=== PATIENT | female | born 1940 | race Caucasian/White ===

== ENCOUNTER → 2019-10-24 10:02 | Outpatient (CLI) | payer MEDICARE, SELFPAY ==
--- NOTE | 2019-10-24 10:07 | RAD_ITS ---
STUDY: X-RAY - LEFT KNEE REASON FOR EXAM: Female, 79 years old. FALL ONE YEAR AGO, RECENTLY PAIN GOT WORSE, NO NEW INJURY TECHNIQUE: 4 view(s) of the knee. COMPARISON: None. FINDINGS: Normal visualized distal femur. Normal visualized proximal tibia and fibula. Normal proximal tibiofibular articulation. There is moderate to severe degenerative arthrosis of the medial femorotibial compartment with moderate joint space narrowing. Normal lateral femorotibial compartment. There is moderate degenerative arthrosis of the patellofemoral articulation. 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
--- NOTE | 2019-10-24 10:08 | RAD_ITS ---
STUDY: X-RAY - PELVIS AND LEFT HIP REASON FOR EXAM: Female, 79 years old. FALL ONE YEAR AGO, PAIN GOT WORSE RECENTLY, NO NEW INJURY TECHNIQUE: 3 views of the pelvis and hip. COMPARISON: None. FINDINGS: There is a non-specific bowel gas pattern. Normal visualized soft tissue structures. Normal bilateral iliac wings, sacroiliac joints and visualized sacrum. Normal bilateral superior and inferior pubic rami. Normal pubic symphysis. Normal bilateral ischial tuberosities. Normal visualized femoral head. Normal acetabulum. There is mild articular joint space narrowing of the hip. Similar mild arthritic changes noted in the right hip. RAD/HIP, UNI W/ Pelvis 2-3 Views IMPRESSION: Age consistent degenerative changes, no acute findings Electronically Signed: Myron Bone MD at 10:57 EDT , Service support ,
== END ==
PROVIDERS: PCP Family Medicine; Referring Provider Family Medicine; Visit Provider Family Medicine
DX: M25.562 Pain in left knee (principal); M25.552 Pain in left hip
CPT/HCPCS: 73502; 73564

== ENCOUNTER → 2019-11-02 10:41 | Outpatient (CLI) | payer MEDICARE, SELFPAY ==
--- NOTE | 2019-11-02 10:49 | ADUL_ITS ---
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 Common Femoral Artery, mid = 113 cm./sec. Supf. Femoral Artery, prox = 125 cm./sec. Supf. Femoral Artery, mid = 136 cm./sec. Supf. Femoral Artery, dist = 128 cm./sec. Profunda Femoral Artery = 115 cm./sec. Popliteal Artery, proximal, = 63 cm./sec. Popliteal Artery, mid = 109 cm./sec. Popliteal Artery, distal = 97 cm./sec. Ant.Tibial Artery, prox = 93 cm./sec. Ant Tibial Artery, mid = 92 cm./sec. Ant. Tibial Artery, distal = 72 cm./sec. Post. Tibial Artery, prox = 96 cm./sec. Post Tibial Artery, mid = 87 cm./sec. Post Tibial Artery, dist. = 99 cm./sec. Peroneal Artery, prox = 71 cm./sec. Peroneal Artery, mid = 68 cm./sec. Peroneal Artery,dist. = 65 cm./sec. Lt DPA: 96 cm/s. Procedure Exam performed in department. Interpretation Summary Normal, pulsatile arterial flow is noted at all levels in the left lower extremity. There is no evidence of aneurysmal dilatation in the left popliteal artery. Ordering Physician: Neo Coon Referring Physician: Neo Coon Performed By: Yeimy Maya, MOISES, RVT
== END ==
PROVIDERS: PCP Family Medicine; Referring Provider Family Medicine; Visit Provider Family Medicine
DX: I74.2 Embolism and thrombosis of arteries of the upper extremities (principal); M25.562 Pain in left knee
CPT/HCPCS: 93926

== ENCOUNTER → 2020-04-17 09:41 | Outpatient (CLI) | payer MEDICARE, SELFPAY ==
[2020-04-17 12:24] LABS: Absolute Lymphocyte Count 1.38 X10^3/uL (0.83-4.51); Absolute Neutrophil Count 3.7 X10^3/uL (2.0-7.7); Basophil# 0.06 X10^3/uL; Eosinophil# 0.11 X10^3/uL; Eosinophils% 1.9 % (0-5); Hematocrit 44.9 % (37-47); Hemoglobin 14.3 g/dL (12.0-15.0); Lymphocyte # 1.38 X10^3/ul (4.0); Lymphocyte % 23.9 % (19-41); Mean Corp Hgb Conc 31.8 g/dL (32-36); Mean Corpuscular Hgb 27.8 pg (27.0-32.0); Mean Corpuscular Volume 87.4 fL (81-99); Mean Platelet Vol. 11.5 fl (6.2-12.0); Monocyte% 8.7 % (0-10); NRBC Flagged by Analyzer 0 % (0-5); Neutrophil # 3.71 X10^3/uL (2.7-7.7); Neutrophil % 64.2 % (47-70); Platelet Count 261 K/mm3 (150-450); RBC Distribution Width CV 13.8 % (11.6-14.6); RBC Distribution Width SD 44.7 fl (35.1-43.9); Red Blood Count 5.14 M/mm3 (4.2-5.4); White Blood Count 5.8 K/mm3 (4.4-11.0)
[2020-04-17 12:58] LABS: ALB/GLOB Ratio 1.1 RATIO (0.9-2.4); AST(SGOT) 14 U/L (15-37); Alanine Aminotransfer ALT/SGPT 19 U/L (13-56); Albumin, Serum 4.1 g/dL (3.2-5.0); Alkaline Phosphatase 71 U/L (45-117); Anion Gap 7 (5-15); BUN 14 mg/dL (7-18); Calcium,Total 9.6 mg/dL (8.5-10.1); Chloride 105 mmol/L (98-107); Cholesterol 148 mg/dL (200); EST Glomerular Filtration Rate 57 mL/min (>60); Est Glom Filt Rate - Afr Amer 69 mL/min (>60); Globulin 3.6 g/dL (2.2-4.2); Glucose 93 mg/dL (74-106); High Density Lipoprotein 59 mg/dL; Potassium 3.7 mmol/L (3.5-5.1); Protein, Total 7.7 g/dL (6.4-8.2); Sodium Level 142 mmol/L (136-145); Thyroid Stim Hormone (TSH) 2.13 uIU/mL (0.358-3.74); Triglycerides 96 mg/dL; Very Low Density Lipoprotein 19 mg/dL (5-40)
== END ==
PROVIDERS: PCP Family Medicine; Visit Provider Family Medicine
DX: I10 Essential (primary) hypertension (principal); E78.5 Hyperlipidemia, unspecified
CPT/HCPCS: 36415; 80053; 80061; 84443; 85025

== ENCOUNTER → 2020-05-11 09:45 | Outpatient (CLI) | payer MEDICARE, SELFPAY ==
--- NOTE | 2020-05-11 09:50 | CDU_ITS ---
Reason For Study: Bilateral bruits Rt. Velocities/BP Lt. Velocities/BP Prox CCA 61.7/9.5 cm/sec. Prox CCA 75/14.6 cm/sec. Mid CCA 72.1/12.1 cm/sec. Mid CCA 70.6/14.6 cm/sec. Dist CCA 49.9/13.4 cm/sec. Dist CCA 60.8/9.1 cm/sec. Prox ICA 49.5/12.6 cm/sec. Prox ICA 109.7/31.1 cm/sec. Mid ICA 79.8/20.6 cm/sec. Mid ICA 120/24.4 cm/sec. Dist ICA 107.2/26.2 cm/sec. Dist ICA 117/22.6 cm/sec. Rt. ICA/CCA = 1.7. Lt. ICA/CCA = 1.7. Prox ECA 192.5/16.3 cm/sec. Prox ECA 110.9/9 cm/sec. Rt. Vert. 22.3 cm/sec. Lt. Vert. 66.7/18.8 cm/sec. Right Extracranial There is homogeneous, smooth atherosclerotic plaque noted in the right common carotid artery. There is heterogeneous, irregular atherosclerotic plaque noted in the right internal carotid artery. There is homogeneous, irregular atherosclerotic plaque noted in the right external carotid artery. Antegrade flow is noted in the right vertebral artery. Left Extracranial There is homogeneous, smooth atherosclerotic plaque noted in the left common carotid artery. There is heterogeneous, irregular atherosclerotic plaque noted in the left internal carotid artery. The left internal carotid artery is very tortuous. There is homogeneous, smooth atherosclerotic plaque noted in the left external carotid artery. Antegrade flow is noted in the left vertebral artery. Procedure Carotid Duplex [id number]. This is a Carotid Duplex examination using B-mode, color flow and specral Doppler. Exam performed in department. Interpretation Summary Mild (<50%) stenosis right extracranial internal carotid. Mild (<50%) stenosis left extracranial internal carotid. A high-resistance waveform with diminished diastolic flow is noted in the right vertebral artery which is suggestive of stenosis or occlusion more distally. Clinical correlation is advised. Flow within the left verterbral artery is antegrade. Ordering Physician: Neo Coon Referring Physician: Neo Coon Performed By: Maye Garner RVT
== END ==
PROVIDERS: PCP Family Medicine; Referring Provider Family Medicine; Visit Provider Family Medicine
DX: I65.23 Occlusion and stenosis of bilateral carotid arteries (principal); I10 Essential (primary) hypertension; E78.5 Hyperlipidemia, unspecified; Z87.891 Personal history of nicotine dependence
CPT/HCPCS: 93880

== ENCOUNTER → 2020-05-22 14:40 | Outpatient (CLI) | payer MEDICARE, SELFPAY ==
--- NOTE | 2020-05-22 14:48 | CT_ITS ---
STUDY: CTA OF THE BRAIN REASON FOR EXAM: Female, 80 years old. VERTEBRAL ARTERY STENOSIS RADIATION DOSAGE (If Supplied By Facility): CTDIvol = ( 26.54 ) mGy, DLP = ( 1390.46 ) mGycm TECHNIQUE: CT angiography was performed with a multi-detector CT scanner. Data acquisition was obtained from the skull base through the vertex following intravenous administration of 100 ML ISOVUE 370. MIP images were reconstructed from the axial data set. Post-processing of the angiographic images was performed, with multiplanar reformation and 3D reconstruction. Individualized dose optimization techniques were used for this CT. COMPARISON: None. FINDINGS: Normal bilateral petrous carotid arteries. There is calcified plaque formation of the right cavernous carotid artery, without a cross-sectional luminal stenosis. There is calcified plaque formation of the left cavernous carotid artery, without a cross-sectional luminal stenosis. Normal right A1 segments of the anterior cerebral artery. Normal left A1 segments of the anterior cerebral artery. Normal intact anterior communicating artery (ACOM). Normal bilateral A2 segments of the anterior cerebral arteries. Normal right M1 and M2 segments of the middle cerebral arteries, with a normal M1 bifurcation. Normal left M1 and M2 segments of the middle cerebral arteries, with a normal M1 bifurcation. Normal right posterior communicating artery (PCOM). Normal left posterior communicating artery (PCOM). There is a small atretic right vertebral artery with a dominant left vertebral artery. Normal basilar artery with a normal basilar bifurcation. The visualized bilateral superior cerebellar (SCA) arteries are normal. Normal bilateral P1, P2 and visualized P3 segments of the posterior cerebral arteries. There is no demonstrated aneurysm of the [place]. Mild cerebral atrophy. Evidence of old lacunar infarct in the basal ganglia bilaterally. Partial opacification of the left maxillary sinus. CT/CTA Head W/WO Contrast IMPRESSION: Small atretic right vertebral artery with a dominant left vertebral artery. Electronically Signed: Joesph Nicholas MD at 15:26 EST , Service support ,
== END ==
PROVIDERS: PCP Family Medicine; Referring Provider Family Medicine; Visit Provider Family Medicine
DX: I65.09 Occlusion and stenosis of unspecified vertebral artery (principal)
CPT/HCPCS: 70496; Q9967

== ENCOUNTER 2021-05-11 14:09 | Observation (INO) | payer MEDICARE, SELFPAY ==
[2021-05-11] VITALS (14 sets, daily range): BP systolic 116–164; BP diastolic 62–81; PULSE 76–94; RESP 14–21; TEMP 36.7–37.1; O2SAT 95–98; BMI 26.9; BMI 28.4; BMI 27.3
--- NOTE | 2021-05-11 14:25 | CT_ITS ---
STUDY: CT HEAD STROKE PROTOCOL W/O CONTRAST INJECTION REASON FOR EXAM: Female, 81 years old. Acute loss of vision of the right side. RADIATION DOSAGE (If Supplied By Facility): CTDIvol = ( ) mGy, DLP = ( ) mGycm TECHNIQUE: Transaxial CT imaging of the brain was performed without administration of intravenous contrast material. Individualized dose optimization techniques were used for this CT. COMPARISON: 05/22/2020. FINDINGS: Normal soft tissue structures. Normal calvarium. Normal size ventricles and extra-axial spaces for the patient''s age. There are areas of decreased attenuation within the white matter tracts of the supratentorial brain, consistent with microvascular disease changes. Old lacunar infarcts in basal ganglia bilaterally unchanged. The mohamud-white matter junction otherwise appears to be preserved. Normal brainstem. Normal cerebellum. There is no intracranial hemorrhage. There are no findings of an acute ischemic infarction. The posterior thickening or retention cyst in the left maxillary sinus. CT/STROKE Brain/Head without Cont IMPRESSION: 1. No acute intracranial process. 2. 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 3. No significant change since the previous exam. N.B. : The above Results were Read Back by Matias Amin to Dr. Bebeto Salcedo, DO, DO, and understanding confirmed on 05/11/2021 14:49:56 (ET). Electronically Signed: Matias Amin, at 14:51 EST ,
--- NOTE | 2021-05-11 14:25 | EKG12_ITS ---
Test Reason : STROKE Blood Pressure : / mmHG Vent. Rate : 084 BPM Atrial Rate : 084 BPM P-R Int : 142 ms QRS Dur : 100 ms QT Int : 412 ms P-R-T Axes : 021 016 021 degrees QTc Int : 486 ms Normal sinus rhythm Normal ECG Confirmed by DALILA NUÑEZ MD ([id number]), state editor LALA VELEZ ([id number]) on 05/13/2021 10:13:43 AM Referred By: TRISTEN Confirmed By:DALILA NUÑEZ MD
--- NOTE | 2021-05-11 14:26 | CT_ITS ---
STUDY: CTA HEAD AND NECK WITH CONTRAST REASON FOR EXAM: Female, 81 years old. Acute right loss of vision. RADIATION DOSAGE (If Supplied By Facility): CTDIvol = ( ) mGy, DLP = ( ) mGycm TECHNIQUE: CT angiography was performed with a multi-detector CT scanner. Data acquisition was obtained from the skull base through the vertex following intravenous administration of IV 100mL Isovue-370. MIP images were reconstructed from the axial data set. Post-processing of the angiographic images was performed, with multiplanar reformation and 3D reconstruction. Individualized dose optimization techniques were used for this CT. COMPARISON: 05/22/2020. FINDINGS: Normal bilateral petrous carotid arteries. There is calcified plaque formation of the right cavernous carotid artery, without a cross-sectional luminal stenosis. There is calcified plaque formation of the left cavernous carotid artery, without a cross-sectional luminal stenosis. There is mild hypoplastic development of the right A1 segment of the anterior cerebral arteries but otherwise intact artery. Normal left A1 segments of the anterior cerebral artery. Normal intact anterior communicating artery (ACOM). Normal bilateral A2 segments of the anterior cerebral arteries. Normal right M1 and M2 segments of the middle cerebral arteries, with a normal M1 bifurcation. Normal left M1 and M2 segments of the middle cerebral arteries, with a normal M1 bifurcation. The posterior communicating arteries bilaterally are suboptimally visualized. There is a small atretic right vertebral artery with a dominant left vertebral artery. Normal basilar artery with a normal basilar bifurcation. The visualized bilateral superior cerebellar (SCA) arteries are normal. There is no demonstrated aneurysm of the [place]. AORTIC ARCH: There is atherosclerotic calcific plaque formation of the aortic arch and great vessels arising from the aortic arch, without a hemodynamically significant stenosis. There is a normal origin of the brachiocephalic, left common carotid, and left subclavian arteries. Normal origins of the brachiocephalic, left common carotid, and left subclavian arteries. RIGHT CAROTID ARTERIES: There is atherosclerotic tortuous elongation of the right common carotid artery. There is mild atherosclerotic plaque formation with mild narrowing of the right carotid bulb. Normal origin of the right internal carotid (ICA) artery without a hemodynamically significant stenosis. Normal visualized cervical portion of the right internal carotid artery. Normal origin of the right external carotid artery (ECA). LEFT CAROTID ARTERIES: There is atherosclerotic tortuous elongation of the left common carotid artery. There is mild atherosclerotic plaque formation with mild narrowing of the left carotid bulb. Normal origin of the left internal carotid (ICA) artery without a hemodynamically significant stenosis. Normal visualized cervical portion of the left internal carotid artery. Normal origin of the left external carotid artery (ECA). VERTEBRAL ARTERIES: There is enhancement within the bilateral vertebral arteries with a small right vertebral artery, and a dominant left vertebral artery. CT/STROKE CTA Head AND Neck W/Con IMPRESSION: 1. Mild atherosclerotic calcifications of the cavernous internal carotid arteries without significant stenosis. 2. Intracranial great vessel stenosis is seen. 3. Mild atherosclerotic desiccation is in the bulb regions bilaterally without significant stenosis. 4. Small right and dominant left vertebral arteries. N.B. : The above Results were Read Back by Matias Amin to Bebeto Salcedo MD, and understanding confirmed on 05/11/2021 15:09:56 (ET). Electronically Signed: Matias Amin, at 15:11 EST ,
--- NOTE | 2021-05-11 14:27 | ED.VIS.STROK ---
HPI History of Present Illness Chief Complaint: Neuro S/Sx Narrative Narrative: 81-year-old female presenting with acute vision loss in the right eye. This started today at 9 AM. Patient was seen by her visually impaired teacher and diagnosed with an acute retinal artery occlusion. Patient was sent here for stroke work-up. Other than vision loss in the right eye in which she sees shadows she has no visual complaints in her left eye. She has no facial droop, slurred speech, paresthesias. She is able to move all 4 extremities without any difficulty. She is not confused. She states she does not have history of stroke and is not on any anticoagulation. She states she is on something for hypertension which is 5 mg. [facility] Medical History (Updated 05/11/21 @ 17:[address] Wayne Bazzi MD) History of peptic ulcer Hyperlipidemia Hypertension Home Medications amlodipine 5 mg PO DAILY 05/11/21 [History Last Taken Unknown] aspirin 81 mg PO DAILY 05/11/21 [History Last Taken Unknown] hydrochlorothiazide 25 mg PO DAILY 05/11/21 [History Last Taken Unknown] pantoprazole 40 mg PO DAILY 05/11/21 [History Last Taken Unknown] rosuvastatin 5 mg PO DAILY 05/11/21 [History Last Taken Unknown] Allergy/AdvReac Type Severity Reaction Status Date / Time No Known Allergies Allergy Verified 05/11/21 14:12 Family History (Updated 05/11/21 @ 17:[address] Wayne Bazzi MD) Other CVA (cerebral vascular accident) Heart disease Surgical History (Updated 05/11/21 @ 17:[address] Wayne Bazzi MD) Status post hysterectomy Social History Smoking Status: Former smoker ROS ROS ED Constitutional Constitutional ED: Denies fever(s) or sweats Eyes Eyes: Reports change in vision right (Vision loss with shadows in right eye) Cardiovascular Cardiovascular: Denies chest pain or palpitations Respiratory/Chest Respiratory/Chest: Denies cough or dyspnea Gastrointestinal Gastrointestinal: Denies abdominal pain, nausea or vomiting Genitourinary Genitourinary ED: Denies dysuria or hematuria Musculoskeletal Musculoskeletal: Denies arthralgias or myalgias Integumentary Denies Abrasions or rash Neurologic Neurologic: Denies headache(s) or paresthesias EXAM Physical Exam Const Vital Signs: 05/11/21 14:10 05/11/21 14:33 05/11/21 14:35 Temperature 98.0 F Temperature Source Temporal Pulse Rate 94 84 Respiratory Rate 18 16 Blood Pressure 164/71 H 134/80 H Blood Pressure Mean 102 98 Pulse Ox 95 95 Oxygen Delivery Method Room Air Room Air Room Air 05/11/21 14:43 05/11/21 14:58 05/11/21 15:16 Temperature Temperature Source Pulse Rate 88 87 85 Respiratory Rate 14 21 H 16 Blood Pressure 134/80 H 134/76 H 129/71 H Blood Pressure Mean 98 95 90 Pulse Ox 95 95 96 Oxygen Delivery Method Room Air Room Air Room Air 05/11/21 15:30 05/11/21 16:00 05/11/21 16:15 Temperature Temperature Source Pulse Rate 89 76 76 Respiratory Rate 15 16 16 Blood Pressure 146/79 H 127/71 H 127/71 H Blood Pressure Mean 101 89 89 Pulse Ox 95 96 96 Oxygen Delivery Method Room Air Room Air Room Air 05/11/21 16:30 Temperature 98.3 F Temperature Source Temporal Pulse Rate 82 Respiratory Rate 16 Blood Pressure 116/62 Blood Pressure Mean 80 Pulse Ox 95 Oxygen Delivery Method Room Air Positive well nourished General Appearance ED: NAD HEENT Reports moist mucous membranes atraumatic Eyes PERRL and EOMs intact bilaterally Neck no lymphadenopathy and supple Chest Wall inspection of chest normal Resp normal respiratory effort and clear to auscultation bilaterally Cardio Rate: regular rate Rhythm: regular rhythm Back/Spine no CVA tenderness General Back: CVA tenderness Extremity normal to inspection Neuro oriented x3 Neuro Narrative: NIH stroke scale score of 2 for blindness in right eye. This is complete and is not a visual field loss. Sensorium / Orientation: alert Psych mental status grossly normal Skin General Skin Exam: Negative for jaundice Lesions: no lesions Rashes: no rashes STROKE Vital Signs/Narrative: Vital Signs Temp Pulse Resp BP Pulse Ox 05/11/21 16:30 98.3 F 82 16 116/62 95 05/11/21 16:15 76 16 127/71 H 96 05/11/21 16:00 76 16 127/71 H 96 05/11/21 15:30 89 15 146/79 H 95 05/11/21 15:16 85 16 129/71 H 96 05/11/21 14:58 87 21 H 134/76 H 95 05/11/21 14:43 88 14 134/80 H 95 05/11/21 14:35 84 16 134/80 H 95 05/11/21 14:10 98.0 F 94 18 164/71 H 95 MDM MDM MDM Narrative Medical decision making narrative: Patient presenting for evaluation of acute vision loss in her eye that occurred at 9 AM this morning. She is outside the window for TPA but still has vision loss. She is given an NIH stroke scale score of 2. Given her vision loss and her history of history of right vertebral artery occlusion stroke team was called and CT and CTA ordered. On return patient had EKG performed which shows a sinus rhythm with ventricular rate 4 beats minute without sign of ischemic change. Chest x-ray my interpretation is no acute cardiopulmonary process the radiologist does agree. High-sensitivity troponin is 7. CBC is unremarkable. Coagulation studies are normal. Renal function is normal and potassium slightly low at 3.3. CT of the brain does identify old lacunar infarcts. There is nothing acute identified on the CTA. There are some old calcifications. Patient states he has no known history of stroke in the past. [facility] recommended admission for MRI and admission for echocardiogram.. Patient given baby aspirin 324 mg. On reevaluation the patient was stating she was getting improvement of her vision and was able to see the curtains in the room, but was stating she could only see the white part at the top. This is improved from the dark shadows that she was seeing earlier. Patient discussed with the hospitalist for admission. Impression: 1. Retinal artery occlusion 2. Acute vision loss right eye Lab Data Attestation: I reviewed the patient's lab results. Labs: Laboratory Results - last 24 hr 05/11/21 05/11/21 05/11/21 14:29 14:30 14:30 WBC 7.3 RBC 5.25 Hgb 14.6 Hct 45.0 MCV 85.7 MCH 27.8 MCHC 32.4 RDW Std Deviation 45.2 H RDW Coeff of Vamshi 14.2 Plt Count 252 MPV 11.2 Immature Gran % (Auto) 0.400 Neut % (Auto) 72.8 H Lymph % (Auto) 16.2 L [place] % (Auto) 8.8 Eos % (Auto) 0.7 Baso % (Auto) 1.1 H Absolute Neuts (auto) 5.3 Absolute Lymphs (auto) 1.18 Nucleated RBC % 0 PT 12.3 INR 1.0 APTT 24.1 Sodium Potassium Chloride Carbon Dioxide Anion Gap BUN Creatinine Estim Creat Clear Calc Est GFR (MDRD) Af Amer Est GFR (MDRD) Non-Af BUN/Creatinine Ratio Glucose Calcium Troponin I High Sens POC Glucose 139 H 05/11/21 14:30 WBC RBC Hgb Hct MCV MCH MCHC RDW Std Deviation RDW Coeff of Vamshi Plt Count MPV Immature Gran % (Auto) Neut % (Auto) Lymph % (Auto) [place] % (Auto) Eos % (Auto) Baso % (Auto) Absolute Neuts (auto) Absolute Lymphs (auto) Nucleated RBC % PT INR APTT Sodium 139 Potassium 3.3 L Chloride 103 Carbon Dioxide 30.0 Anion Gap 6 BUN 16 Creatinine 1.01 Estim Creat Clear Calc 41.59 Est GFR (MDRD) Af Amer 68 Est GFR (MDRD) Non-Af 56 L BUN/Creatinine Ratio 15.8 Glucose 150 H Calcium 9.0 Troponin I High Sens 7 POC Glucose Radiography Diagnostic Testing: Clinical Impression(s) from Imaging Studies Brain CT 05/11/21 14:25 IMPRESSION: 1. No acute intracranial process. 2. 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 3. No significant change since the previous exam. N.B. : The above Results were Read Back by Matias Amin to Dr. Bebeto Salcedo, , DO, and understanding confirmed on 05/11/2021 14:49:56 (ET). Electronically Signed: Matias Amin, at 14:51 EST , ADDENDUM: 05/11/21 1458 IMPRESSION: 1. No acute intracranial process. 2. 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 3. No significant change since the previous exam. N.B. : The above Results were Read Back by Matias Amni to Dr. Bebeto Salcedo, , DO, and understanding confirmed on 05/11/2021 14:49:56 (ET). Electronically Signed: Matias Amin, at 14:51 EST , Head/Neck CTA 05/11/21 14:26 IMPRESSION: 1. Mild atherosclerotic calcifications of the cavernous internal carotid arteries without significant stenosis. 2. Intracranial great vessel stenosis is seen. 3. Mild atherosclerotic desiccation is in the bulb regions bilaterally without significant stenosis. 4. Small right and dominant left vertebral arteries. N.B. : The above Results were Read Back by Matias Amin to Bebeto Salcedo MD, and understanding confirmed on 05/11/2021 15:09:56 (ET). Electronically Signed: Matias Amin, at 15:11 EST Reading Location ID and State: [facility] / [place] Tel , Service support , ADDENDUM: 05/11/21 1518 IMPRESSION: 1. Mild atherosclerotic calcifications of the cavernous internal carotid arteries without significant stenosis. 2. Intracranial great vessel stenosis is seen. 3. Mild atherosclerotic desiccation is in the bulb regions bilaterally without significant stenosis. 4. Small right and dominant left vertebral arteries. N.B. : The above Results were Read Back by Matias Amin to Bebeto Salcedo MD, and understanding confirmed on 05/11/2021 15:09:56 (ET). Electronically Signed: Matias Amin, at 15:11 EST Reading Location ID and State: [facility] / [place] Tel , Service support , Chest X-Ray 05/11/21 14:55 IMPRESSION: Small to moderate hiatal hernia. No active pulmonary disease. Electronically Signed: Matias Amin, at 15:37 EST Reading Location ID and State: [facility] / [place] Tel , Service support , Discharge Plan Triage Chief Complaint: Neuro S/Sx ED Provider: Bebeto Salcedo Dx/Rx/DC Orders Primary Care Provider: Neo Coon
--- NOTE | 2021-05-11 14:27 | NURSING ---
1424 STROKE ALERT CALLED
[2021-05-11 14:36] LABS: Bedside Glucose 139 mg/dL (70-110)
[2021-05-11 14:43] LABS: Absolute Lymphocyte Count 1.18 X10^3/uL (0.83-4.51); Absolute Neutrophil Count 5.3 X10^3/uL (2.0-7.7); Basophil# 0.08 X10^3/uL; Basophil% 1.1 % (0-1); Eosinophil# 0.05 X10^3/uL; Eosinophils% 0.7 % (0-5); Hemoglobin 14.6 g/dL (12.0-15.0); Lymphocyte # 1.18 X10^3/ul (0.83-4.51); Lymphocyte % 16.2 % (19-41); Mean Corp Hgb Conc 32.4 g/dL (32-36); Mean Corpuscular Hgb 27.8 pg (27.0-32.0); Mean Corpuscular Volume 85.7 fL (81-99); Mean Platelet Vol. 11.2 fl (6.2-12.0); Monocyte# 0.64 X10^3/uL; Monocyte% 8.8 % (0-10); NRBC Flagged by Analyzer 0 % (0-5); Neutrophil # 5.31 X10^3/uL (2.7-7.7); Neutrophil % 72.8 % (47-70); Platelet Count 252 K/mm3 (150-450); RBC Distribution Width CV 14.2 % (11.6-14.6); RBC Distribution Width SD 45.2 fl (35.1-43.9); Red Blood Count 5.25 M/mm3 (4.2-5.4); White Blood Count 7.3 K/mm3 (4.4-11.0)
[2021-05-11 14:48] LABS: Prothrombin Time (Protime)PT. 12.3 SECONDS (11.7-14.9)
[2021-05-11 14:49] LABS: Partial Thromboplast Time 24.1 Seconds (24.1-36.2)
--- NOTE | 2021-05-11 14:55 | RAD_ITS ---
STUDY: X-RAY CHEST REASON FOR EXAM: Female, 81 years old. Acute right loss of vision. TECHNIQUE: Single AP portable view of the chest. COMPARISON: 06/30/2019. FINDINGS: The lungs are clear and expanded. There is no demonstrated pleural abnormality. Normal size heart. Normal mediastinum and karen. Normal visualized pulmonary arteries. Mild atherosclerotic calcifications and tortuosity of the thoracic aorta. No demonstrated acute osseous changes. Small to moderate hiatal hernia. RAD/Chest 1 View IMPRESSION: Small to moderate hiatal hernia. No active pulmonary disease. Electronically Signed: Matias Amin, at 15:37 EST ,
[2021-05-11 15:02] LABS: Anion Gap 6 (5-15); BUN 16 mg/dL (7-18); BUN/Creat Ratio 15.8 RATIO (10-20); Chloride 103 mmol/L (98-107); Creatinine, Serum 1.01 mg/dL (0.55-1.02); EST Glomerular Filtration Rate 56 mL/min (>60); Est Glom Filt Rate - Afr Amer 68 mL/min (>60); Estimated Creatinine Clearance 41.59 ml/min; Glucose 150 mg/dL (74-106); Potassium 3.3 mmol/L (3.5-5.1); Sodium Level 139 mmol/L (136-145); Troponin-I HS 7 pg/mL (3.0-54.0)
[2021-05-11] MEDS: Aspirin 81 MG TAB.CHEW 324 MG PO (15:29)
--- NOTE | 2021-05-11 16:03 | NURSING ---
DR MONTES FOR DR VILLALPANDO
--- NOTE | 2021-05-11 16:26 | NURSING ---
MED SURG KOTSONIS STROKE
--- NOTE | 2021-05-11 17:15 | HP.PCM.HOS_ITS ---
[facility] - General General Date of Admission: 05/11/21 HPI Narrative BRIGHT RAO, is a 81 F who presents the hospital after she lost vision in her right eye. She presented to her release specialist who diagnosed her with a right retinal artery occlusion. She says it to release specialist evaluated her and sent her to the ER for further evaluation. CTA of the head and neck was unremarkable for any large vessel occlusion, chest x-ray was normal and CT of the brain showed previous strokes that she was unaware that she had had. Unfortunately due to the timing she was outside the window for TPA, [facility] neurology was consulted and indicated NIH 0 with loss of vision in the right eye. She is to be a smoker quit 5 years ago otherwise she gets the doctor and takes Norvasc, hydrochlorothiazide, PPI. [facility] Medical History (Updated 05/11/21 @ 17:[address] Wayne Bazzi MD) History of peptic ulcer Hyperlipidemia Hypertension Home Medications amlodipine 5 mg PO DAILY 05/11/21 [History Last Taken Unknown] aspirin 81 mg PO DAILY 05/11/21 [History Last Taken Unknown] hydrochlorothiazide 25 mg PO DAILY 05/11/21 [History Last Taken Unknown] pantoprazole 40 mg PO DAILY 05/11/21 [History Last Taken Unknown] rosuvastatin 5 mg PO DAILY 05/11/21 [History Last Taken Unknown] Allergy/AdvReac Type Severity Reaction Status Date / Time No Known Allergies Allergy Verified 05/11/21 14:12 Family History (Updated 05/11/21 @ 17:[address] Wayne Bazzi MD) Other CVA (cerebral vascular accident) Heart disease Surgical History (Updated 05/11/21 @ 17:[address] Wayne Bazzi MD) Status post hysterectomy Social History Smoking Status: Former smoker ROS Constitutional Constitutional: Denies chills, fatigue, fever(s) or malaise Eyes Eyes: Reports change in vision right; Denies blurry vision ENT HEENT: Denies headache(s) or nasal discharge Cardiovascular Cardiovascular: Denies chest pain, dyspnea on exertion or syncope Respiratory/Chest Respiratory/Chest: Denies cough, shortness of breath at rest or shortness of breath with exertion Gastrointestinal Gastrointestinal: Denies constipation, diarrhea, nausea or vomiting Genitourinary Genitourinary: Denies dysuria Neurologic Neurologic: Denies focal weakness, numbness or tremor(s) Psychiatric Psychiatric: Denies anxiety or depression Vital Signs Vital Signs Vital Signs: 05/11/21 14:10 05/11/21 14:33 05/11/21 14:35 Temperature 98.0 F Temperature Source Temporal Pulse Rate 94 84 Respiratory Rate 18 16 Blood Pressure 164/71 H 134/80 H Blood Pressure Mean 102 98 Pulse Ox 95 95 Oxygen Delivery Method Room Air Room Air Room Air 05/11/21 14:43 05/11/21 14:58 05/11/21 15:16 Temperature Temperature Source Pulse Rate 88 87 85 Respiratory Rate 14 21 H 16 Blood Pressure 134/80 H 134/76 H 129/71 H Blood Pressure Mean 98 95 90 Pulse Ox 95 95 96 Oxygen Delivery Method Room Air Room Air Room Air 05/11/21 15:30 05/11/21 16:00 05/11/21 16:15 Temperature Temperature Source Pulse Rate 89 76 76 Respiratory Rate 15 16 16 Blood Pressure 146/79 H 127/71 H 127/71 H Blood Pressure Mean 101 89 89 Pulse Ox 95 96 96 Oxygen Delivery Method Room Air Room Air Room Air 05/11/21 16:30 Temperature 98.3 F Temperature Source Temporal Pulse Rate 82 Respiratory Rate 16 Blood Pressure 116/62 Blood Pressure Mean 80 Pulse Ox 95 Oxygen Delivery Method Room Air Weight Weight: 176 lb 5.917 oz Body Mass Index (BMI) 28.4 Physical Exam Const alert, oriented x3 and no apparent distress General Appearance: cooperative HEENT normocephalic and moist oral mucous membranes Eyes PERRL, EOMs intact bilaterally and conjunctivae normal Neck supple and no JVD Resp normal respiratory effort, no retractions, no use of accessory muscles and clear to auscultation bilaterally Auscultation: Negative for crackles, rales, rhonchi or wheezes Cardio regular rate, regular rhythm, S1 normal heart sound, S2 normal heart sound and no murmurs GI soft to palpation, non-tender and non-distended; Negative for hepatosplenomegaly Extremity no clubbing, cyanosis or edema Skin no rashes or lesions noted Neuro CN's II-XII intact bilaterally, no focal motor deficits and no sensory deficits noted Psych affect normal Appearance: appropriate Results Lab / Micro Data Result Diagrams: 05/11/21 14:30 05/11/21 14:30 Labs: Laboratory Results - last 24 hr 05/11/21 14:29: POC Glucose 139 H 05/11/21 14:30: WBC 7.3, RBC 5.25, Hgb 14.6, Hct 45.0, MCV 85.7, MCH 27.8, MCHC 32.4, RDW Std Deviation 45.2 H, RDW Coeff of Vamshi 14.2, Plt Count 252, MPV 11.2, Immature Gran % (Auto) 0.400, Neut % (Auto) 72.8 H, Lymph % (Auto) 16.2 L, [place] % (Auto) 8.8, Eos % (Auto) 0.7, Baso % (Auto) 1.1 H, Absolute Neuts (auto) 5.3, Absolute Lymphs (auto) 1.18, Nucleated RBC % 0 05/11/21 14:30: PT 12.3, INR 1.0, APTT 24.1 05/11/21 14:30: Sodium 139, Potassium 3.3 L, Chloride 103, Carbon Dioxide 30.0, Anion Gap 6, BUN 16, Creatinine 1.01, Estim Creat Clear Calc 41.59, Est GFR (MDRD) Af Amer 68, Est GFR (MDRD) Non-Af 56 L, BUN/Creatinine Ratio 15.8, Glucose 150 H, Calcium 9.0, Troponin I High Sens [address] 05/11/21 14:25 IMPRESSION: 1. No acute intracranial process. 2. 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 3. No significant change since the previous exam. N.B. : The above Results were Read Back by Matias Amin to Dr. Bebeto Salcedo, DO, DO, and understanding confirmed on 05/11/2021 14:49:56 (ET). Electronically Signed: Matias Amin, at 14:51 EST , ADDENDUM: 05/11/21 1458 IMPRESSION: 1. No acute intracranial process. 2. 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 3. No significant change since the previous exam. N.B. : The above Results were Read Back by Matias Amin to Dr. Bebeto Salcedo DO, DO, and understanding confirmed on 05/11/2021 14:49:56 (ET). Electronically Signed: Matias Amin, at 14:51 EST , Head/Neck CTA 05/11/21 14:26 IMPRESSION: 1. Mild atherosclerotic calcifications of the cavernous internal carotid arteries without significant stenosis. 2. Intracranial great vessel stenosis is seen. 3. Mild atherosclerotic desiccation is in the bulb regions bilaterally without significant stenosis. 4. Small right and dominant left vertebral arteries. N.B. : The above Results were Read Back by Matias Amin to Bebeto Salcedo MD, and understanding confirmed on 05/11/2021 15:09:56 (ET). Electronically Signed: Matias Amin, at 15:11 EST , ADDENDUM: 05/11/21 1518 IMPRESSION: 1. Mild atherosclerotic calcifications of the cavernous internal carotid arteries without significant stenosis. 2. Intracranial great vessel stenosis is seen. 3. Mild atherosclerotic desiccation is in the bulb regions bilaterally without significant stenosis. 4. Small right and dominant left vertebral arteries. N.B. : The above Results were Read Back by Matias Amin to Bebeto Salcedo MD, and understanding confirmed on 05/11/2021 15:09:56 (ET). Electronically Signed: Matias Amin, at 15:11 EST , Chest X-Ray 05/11/21 14:55 IMPRESSION: Small to moderate hiatal hernia. No active pulmonary disease. Electronically Signed: Matias Amin, at 15:37 EST , Assessment & Plan Assessment/Plan (1) Retinal artery branch occlusion of right eye: PLAN: 1. Retinal artery occlusion possible CVA ?We will obtain an MRI and an echo ?We will continue her home aspirin and place her on a high-dose statin ?Continue with PT/OT evaluation ?We will hold her home blood pressure medications and allow permissive hypertension 2. HTN/HLD ?Blood pressures are stable will Lopressor hypertension ?Hold her Norvasc and her hydrochlorothiazide ?Continue with Lipitor 80 mg and on discharge can plan to increase her Crestor to high intensity dose 3. GERD ?Stable ?Continue with PPI DVT: Ambulation Charges/Coding Visit Charges OBSV E&M: 33554 Initial observation care L2
--- NOTE | 2021-05-11 17:34 | ECHOD_ITS ---
Reason For Study: TIA/CVA Procedure This was a 2D Doppler, Color Flow transthoracic echocardiogram. The study was technically difficult. Exam performed portable in patient room. Left Ventricle Normal LV size. Left ventricular systolic function is normal. The estimated ejection fraction is 60 %. Stage 1 diastolic dysfunction. No regional wall motion abnormalities noted. Right Ventricle Normal RV size. Normal systolic function. Atria Normal left atrium. Normal right atrium. Bubble contrast study negative for right to left interatrial shunt. Mitral Valve Normal mitral valve. Tricuspid Valve Normal tricuspid valve. Mild (1+) tricuspid valve insufficiency. Pulmonary artery systolic pressure is 28 mmHg. Aortic Valve Trisinus/trileaflet aortic valve. Mild focal aortic valve calcification. Pulmonic Valve Normal pulmonic valve. Great Vessels Calcified aortic root. The pulmonary artery is normal size. Normal inferior vena cava. Pericardium/Pleural No pericardial effusion. Medication Performed a rapid injection of agitated mix of 9 cc saline and 1cc air to assess for atrial septal defect. MMode/2D Measurements & Calculations LVIDd: 4.1 cm IVSd: 0.90 cm Ao root diam: 3.3 cm LVIDs: 2.6 cm LVPWd: 0.89 cm RVDd: 3.2 cm FS: 35.8 % LAV(MOD-bp): 59.0 ml LA A4 area: 19.9 cm2 LA dimension(2D): 4.4 cm LAV(MOD-bp) Indexed: 31.7 ml/m2 LAV(MOD-sp2): 50.3 ml LAV(MOD-sp4): 53.5 ml RA A4 area: 15.9 cm2 Doppler Measurements & Calculations MV E max jony: 60.8 cm/sec Lat Peak E' Jony: 9.0 cm/sec Med Peak E' Jony: 7.2 cm/sec MV A max jony: 125.8 cm/sec E/E' lat: 6.7 E/E' med: 8.5 MV E/A: 0.48 Ao V2 max: 125.0 cm/sec LV V1 max: 117.6 cm/sec TR max jony: 241.1 cm/sec Ao max P.3 mmHg LV V1 max P.5 mmHg TR max P.2 mmHg ECHO/Echo Complete Interpretation Summary Pulmonary artery systolic pressure is 28 mmHg. Normal LV size. Left ventricular systolic function is normal. The estimated ejection fraction is 60 %. Mild focal aortic valve calcification. Bubble contrast study negative for right to left interatrial shunt. Stage 1 diastolic dysfunction. Ordering Physician: Wayne Bazzi Referring Physician: NATE SILVERIO Performed By: Rupinder Gonzalez, RDCS, RVT
[2021-05-11] MEDS: Potassium Chloride Oral Tablet 20 MEQ 40 MEQ PO (18:21)
--- NOTE | 2021-05-11 21:23 | NURSING ---
Pt c/o feeling warm vital signs Bp-131/81, Temp-98.2, RR-16, Spo2-95%, HR-88. Pt temperature setting in room was above 85 degrees temperature set at 70 degrees communicated with patient. Call light within reach no other concerns at this time nurse was made aware.
[2021-05-11] MEDS: Atorvastatin Calcium 80 MG Tablet PO (21:27)
[2021-05-12] VITALS (11 sets, daily range): BP systolic 106–136; BP diastolic 46–72; PULSE 70–84; RESP 16–18; TEMP 36.7–37.1; O2SAT 94–97; BMI 27.3
[2021-05-12 06:32] LABS: Absolute Lymphocyte Count 1.47 X10^3/uL (0.83-4.51); Absolute Neutrophil Count 3.5 X10^3/uL (2.0-7.7); Basophil# 0.06 X10^3/uL; Eosinophil# 0.11 X10^3/uL; Eosinophils% 1.9 % (0-5); Hemoglobin 12.9 g/dL (12.0-15.0); Lymphocyte # 1.47 X10^3/ul (0.83-4.51); Lymphocyte % 25.5 % (19-41); Mean Corp Hgb Conc 33.1 g/dL (32-36); Mean Corpuscular Volume 84.8 fL (81-99); Mean Platelet Vol. 11.3 fl (6.2-12.0); Monocyte# 0.57 X10^3/uL; Monocyte% 9.9 % (0-10); NRBC Flagged by Analyzer 0 % (0-5); Neutrophil # 3.54 X10^3/uL (2.7-7.7); Neutrophil % 61.5 % (47-70); Platelet Count 226 K/mm3 (150-450); RBC Distribution Width CV 14.4 % (11.6-14.6); RBC Distribution Width SD 44.2 fl (35.1-43.9); White Blood Count 5.8 K/mm3 (4.4-11.0)
[2021-05-12 07:17] LABS: Anion Gap 5 (5-15); BUN 13 mg/dL (7-18); BUN/Creat Ratio 16.8 RATIO (10-20); Calcium,Total 8.7 mg/dL (8.5-10.1); Chloride 106 mmol/L (98-107); Cholesterol 116 mg/dL (200); Creatinine, Serum 0.78 mg/dL (0.55-1.02); EST Glomerular Filtration Rate 76 mL/min (>60); Est Glom Filt Rate - Afr Amer 92 mL/min (>60); Glucose 87 mg/dL (74-106); High Density Lipoprotein 53 mg/dL; Potassium 3.3 mmol/L (3.5-5.1); Sodium Level 140 mmol/L (136-145); Triglycerides 59 mg/dL; Very Low Density Lipoprotein 12 mg/dL (5-40)
[2021-05-12] MEDS: Aspirin 81 MG TAB.CHEW PO (07:52)
--- NOTE | 2021-05-12 08:32 | MRI_ITS ---
STUDY: MRI BRAIN WITHOUT CONTRAST REASON FOR EXAM: Female, 81 years old. CVA, sudden vision loss r eye TECHNIQUE: Standardized multiplanar fat and water weighted pulse sequences were obtained. COMPARISON: 05/11/2021 CT of the head FINDINGS: Normal size of the ventricles and extra-axial spaces for the patient''s age. There are multiple white matter hyperintensities, distributed throughout the deep white matter tracts of the cerebral hemispheres, consistent with moderate chronic white matter ischemic changes. There are prominent perivascular spaces (PVS) involving the right basal ganglia. Normal thalami. There is no extra-axial fluid accumulation. Normal sella turcica, pituitary gland, infundibular stalk, optic chiasm and hypothalamus. Normal tectal plate and pineal gland. There are chronic white matter ischemic changes of the collin. The midbrain and medulla are otherwise normal. Normal cerebellum. Normal basal cisterns. MRI/Brain without Contrast IMPRESSION: No acute intracranial abnormality. Moderate chronic microvascular ischemic changes. Electronically Signed: Lisa Campos MD at 15:00 EST ,
[2021-05-12] MEDS: LORazepam 2 MG/ML Syringe 0.5 MG IV (08:58)
--- NOTE | 2021-05-12 10:11 | PN.HOSP_ITS ---
Subjective Subjective Doing well, no change in her symptoms. She still has significantly reduced vision in her right eye Objective Data Objective Data Vital Signs: Vital Signs Temp Pulse Resp BP Pulse Ox 98.6 F 76 16 136/69 H 96 05/12/21 08:50 05/12/21 08:50 05/12/21 08:50 05/12/21 08:50 05/12/21 08:50 Oxygen Delivery Method Room Air Weight: 169 lb 5.04 oz Body Mass Index (BMI) 27.3 Intake & Output: Intake and Output for Last 24 Hours 05/11/21 05/12/21 05/13/21 03:59 03:59 03:59 Intake Total 300 / 300 240 / 240 Balance 300 / 300 240 / 240 Lab / Micro Data Result Diagrams: 05/12/21 05:39 05/12/21 05:39 Labs: Laboratory Results - last 24 hr 05/11/21 14:29: POC Glucose 139 H 05/11/21 14:30: WBC 7.3, RBC 5.25, Hgb 14.6, Hct 45.0, MCV 85.7, MCH 27.8, MCHC 32.4, RDW Std Deviation 45.2 H, RDW Coeff of Vamshi 14.2, Plt Count 252, MPV 11.2, Immature Gran % (Auto) 0.400, Neut % (Auto) 72.8 H, Lymph % (Auto) 16.2 L, [place] % (Auto) 8.8, Eos % (Auto) 0.7, Baso % (Auto) 1.1 H, Absolute Neuts (auto) 5.3, Absolute Lymphs (auto) 1.18, Nucleated RBC % 0 05/11/21 14:30: PT 12.3, INR 1.0, APTT 24.1 05/11/21 14:30: Sodium 139, Potassium 3.3 L, Chloride 103, Carbon Dioxide 30.0, Anion Gap 6, BUN 16, Creatinine 1.01, Estim Creat Clear Calc 41.59, Est GFR (MDRD) Af Amer 68, Est GFR (MDRD) Non-Af 56 L, BUN/Creatinine Ratio 15.8, Glucose 150 H, Calcium 9.0, Troponin I High Sens 7 05/12/21 05:39: WBC 5.8, RBC 4.60, Hgb 12.9, Hct 39.0, MCV 84.8, MCH 28.0, MCHC 33.1, RDW Std Deviation 44.2 H, RDW Coeff of Vamshi 14.4, Plt Count 226, MPV 11.3, Immature Gran % (Auto) 0.200, Neut % (Auto) 61.5, Lymph % (Auto) 25.5, [place] % (Auto) 9.9, Eos % (Auto) 1.9, Baso % (Auto) 1.0, Absolute Neuts (auto) 3.5, Absolute Lymphs (auto) 1.47, Nucleated RBC % 0 05/12/21 05:39: Sodium 140, Potassium 3.3 L, Chloride 106, Carbon Dioxide 29.0, Anion Gap 5, BUN 13, Creatinine 0.78, Estim Creat Clear Calc 42.00, Est GFR (MDRD) Af Amer 92, Est GFR (MDRD) Non-Af 76, BUN/Creatinine Ratio 16.8, Glucose 87, Calcium 8.7, Triglycerides 59, Cholesterol 116, LDL Cholesterol 51, VLDL Cholesterol 12, HDL Cholesterol 53 Radiography Diagnostic Testing: Radiology Impression Brain CT 05/11/21 14:25 IMPRESSION: 1. No acute intracranial process. 2. 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 3. No significant change since the previous exam. N.B. : The above Results were Read Back by Matias Amin to Dr. Bebeto Salcedo, , DO, and understanding confirmed on 05/11/2021 14:49:56 (ET). Electronically Signed: Matias Amin, at 14:51 EST Reading Location ID and State: [facility] / [place] Tel , Service support , ADDENDUM: 05/11/21 1458 IMPRESSION: 1. No acute intracranial process. 2. 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 3. No significant change since the previous exam. N.B. : The above Results were Read Back by Matias Amin to Dr. Bebeto Salcedo, , DO, and understanding confirmed on 05/11/2021 14:49:56 (ET). Electronically Signed: Matias Amin, at 14:51 EST , Head/Neck CTA 05/11/21 14:26 IMPRESSION: 1. Mild atherosclerotic calcifications of the cavernous internal carotid arteries without significant stenosis. 2. Intracranial great vessel stenosis is seen. 3. Mild atherosclerotic desiccation is in the bulb regions bilaterally without significant stenosis. 4. Small right and dominant left vertebral arteries. N.B. : The above Results were Read Back by Matias Amin to Bebeto Salcedo MD, and understanding confirmed on 05/11/2021 15:09:56 (ET). Electronically Signed: Matias Amin, at 15:11 EST Reading Location ID and State: [facility] / [place] Tel , Service support , ADDENDUM: 05/11/21 1518 IMPRESSION: 1. Mild atherosclerotic calcifications of the cavernous internal carotid arteries without significant stenosis. 2. Intracranial great vessel stenosis is seen. 3. Mild atherosclerotic desiccation is in the bulb regions bilaterally without significant stenosis. 4. Small right and dominant left vertebral arteries. N.B. : The above Results were Read Back by Matias Amin to Bebeto Salcedo MD, and understanding confirmed on 05/11/2021 15:09:56 (ET). Electronically Signed: Matias Amin, at 15:11 EST Reading Location ID and State: [facility] / [place] Tel , Service support , Chest X-Ray 05/11/21 14:55 IMPRESSION: Small to moderate hiatal hernia. No active pulmonary disease. Electronically Signed: Matias Amin, at 15:37 EST Reading Location ID and State: [facility] / [place] Tel , Service support , Physical Exam Const alert, oriented x3 and no apparent distress General Appearance: cooperative HEENT normocephalic and moist oral mucous membranes Eyes PERRL, EOMs intact bilaterally and conjunctivae normal Neck supple and no JVD Resp normal respiratory effort, no retractions, no use of accessory muscles and clear to auscultation bilaterally Auscultation: Negative for crackles, rales, rhonchi or wheezes Cardio regular rate, regular rhythm, S1 normal heart sound, S2 normal heart sound and no murmurs GI soft to palpation, non-tender and non-distended; Negative for hepatosplenomegaly Extremity no clubbing, cyanosis or edema Skin no rashes or lesions noted Neuro CN's II-XII intact bilaterally, no focal motor deficits and no sensory deficits noted Neuro Narrative: This vision in her right eye Psych affect normal Appearance: appropriate Assessment & Plan Assessment/Plan (1) Retinal artery branch occlusion of right eye: PLAN: 1. Retinal artery occlusion possible CVA ?We will obtain an MRI and an echo ?We will continue her home aspirin and place her on a high-dose statin ?Continue with PT/OT evaluation ?We will hold her home blood pressure medications and allow permissive hypertension 2. HTN/HLD ?Blood pressures are stable will Lopressor hypertension ?Hold her Norvasc and her hydrochlorothiazide ?Continue with Lipitor 80 mg and on discharge can plan to increase her Crestor to high intensity dose 3. GERD ?Stable ?Continue with PPI DVT: Ambulation Charges/Coding Visit Charges OBSV E&M: 85012 Subsequent observation care L2
[2021-05-12] MEDS: Potassium Chloride Oral Tablet 20 MEQ 60 MEQ PO (10:39)
[2021-05-12] MEDS: Atorvastatin Calcium 80 MG Tablet PO (21:25)
[2021-05-13] VITALS (7 sets, daily range): BP systolic 129–135; BP diastolic 65–86; PULSE 68–85; RESP 16; TEMP 36.7–37.1; O2SAT 94–98; BMI 27.3
[2021-05-13 06:55] LABS: Anion Gap 5 (5-15); BUN 13 mg/dL (7-18); BUN/Creat Ratio 17.2 RATIO (10-20); Calcium,Total 8.8 mg/dL (8.5-10.1); Chloride 112 mmol/L (98-107); Creatinine, Serum 0.76 mg/dL (0.55-1.02); EST Glomerular Filtration Rate 78 mL/min (>60); Est Glom Filt Rate - Afr Amer 95 mL/min (>60); Glucose 85 mg/dL (74-106); Potassium 4.1 mmol/L (3.5-5.1); Sodium Level 142 mmol/L (136-145)
[2021-05-13] MEDS: Aspirin 81 MG TAB.CHEW PO (09:43)
--- NOTE | 2021-05-13 13:00 | CASEMGMT ---
Pt has been independent in room and per therapy, no further therapy needed. SStaten RN CM
--- NOTE | 2021-05-13 13:55 | PCM.DC.SUM ---
Providers Date of Admission: 05/11/21 Primary Care Physician: Neo Coon Reason For Visit: CVA, RETINAL ARTERY OCCLUSION Diagnosis Discharge Diagnosis (1) Retinal artery branch occlusion of right eye: Status: Acute Code(s): H34.231 - Retinal artery branch occlusion, right eye Medications at Discharge Home Medications amlodipine 5 mg PO DAILY 05/11/21 aspirin 81 mg PO DAILY 05/11/21 hydrochlorothiazide 25 mg PO DAILY 05/11/21 pantoprazole 40 mg PO DAILY 05/11/21 atorvastatin 40 mg PO QHS #30 tab 05/13/21 clopidogrel [Plavix] 75 mg PO DAILY #30 tab 05/13/21 Hospital Course Operations None Procedures 2-D Echocardiogram Summary of Care Provided Minutes Spent on Discharge: 45 Hospital Course: Patient is an 81 y/o female with a PMH as outlined who was admitted via the ED on 05/13/2020 with a complaint of loss of vision in her right eye. She first went to see her financial management and was diagnosed with a right retinal artery occlusion. Pathologist was concerned about a possible stroke so scented to the ER where CT of the head and neck was unremarkable for any large vessel occlusion. Chest x-ray was normal and CT of the brain showed previous lacunar infarcts in the basal ganglia. She was not a candidate for TPA. She was admitted and managed for right retinal artery occlusion to rule out a stroke. She had MRI of the brain which was negative for any evidence of stroke. [facility] neurology was consulted. She had a 2D echo results of which were pending at time of discharge. Patient remained stable and was discharged home on 05/13/2021 on p.o. aspirin as well as high intensity statin. Per [facility] request, ESR and CRP were requested and these were pending at the time of discharge. She was discharged on a 30-day Holter monitor and is to follow-up with her primary care doctor.Per neurology recommendation, she was also discharged on PO plavix 75mg daily x 3 months. Patient was seen and examined prior to discharge. She had no active complaints and felt well. Review of systems otherwise negative. Labs and vitals reviewed. Home medication reviewed and reconciled. Physical Exam Const alert, oriented x3 and no apparent distress General Appearance: cooperative and comfortable Orientation / Consciousness: awake Exam Limitations: no limitations HEENT normocephalic, head/scalp atraumatic, hearing grossly normal bilaterally and moist oral mucous membranes Eyes PERRL and EOMs intact bilaterally Neck no lymphadenopathy, supple and no JVD Resp normal respiratory effort, no retractions, no use of accessory muscles and clear to auscultation bilaterally Cardio regular rate, regular rhythm, S1 normal heart sound and S2 normal heart sound GI normal to inspection, nondistended, normoactive bowel sounds, soft to palpation, non-tender and non-distended Extremity normal to inspection, full ROM and no clubbing, cyanosis or edema Skin no rashes or lesions noted, no wounds and skin turgor normal Neuro oriented x3, CN's II-XII intact bilaterally and moves all extremities Sensorium / Orientation: awake and alert Motor Exam: strength 5/5 throughout Psych affect normal Weight / BMI Weight Weight: 169 lb 5.04 oz Body Mass Index (BMI) 27.3 ABG / Lab / Microbiology Data Result Diagrams: 05/12/21 05:39 05/13/21 05:49 Laboratory: Laboratory Results - last 24 hr 05/13/21 05:49: Sodium 142, Potassium 4.1, Chloride 112 H, Carbon Dioxide 25.0, Anion Gap 5, BUN 13, Creatinine 0.76, Estim Creat Clear Calc 42.00, Est GFR (MDRD) Af Amer 95, Est GFR (MDRD) Non-Af 78, BUN/Creatinine Ratio 17.2, Glucose 85, Calcium 8.8 Radiography Diagnostic Testing: Radiology Impression Brain MRI 05/12/21 08:32 IMPRESSION: No acute intracranial abnormality. Moderate chronic microvascular ischemic changes. Electronically Signed: Lisa Campos MD at 15:00 EST , D/C Instructions Discharge Diet: Low fat / Low cholesterol Discharge Activity: Return to Normal Activity Weight Bearing Status: Weight bearing as tolerated Call your doctor if you observe: Fever of 101 or Higher, Shortness of breath, Dizziness, Chest pain and Increased palpitations (irregular heartbeat) Meaningful Use Info Meaningful Use Diagnoses (Choose all that apply): None applicable Discharge Plan Admission Admit Date/Time: 05/11/21 16:38 Primary Reason for Your Visit: righ retinal artery occlusion Attending Provider: Janis Watson Primary Care Provider: Neo Coon Instructions Patient Instructions: Central Retinal Artery Occlusion Additional Instructions / Restrictions: follow up with financial management in 1-2 weeks. TO be discharged with 48 hour Holter monitor, and 30 day event monitor will be ordered. Discharge Orders/Prescriptions Prescriptions: New atorvastatin 40 mg tablet 40 mg PO QHS Qty: 30 RF: 2 clopidogrel [Plavix] 75 mg tablet 75 mg PO DAILY Qty: 30 RF: 2 Continued amlodipine 5 mg tablet 5 mg PO DAILY RF: 0 pantoprazole 40 mg tablet,delayed release (DR/EC) 40 mg PO DAILY RF: 0 aspirin 81 mg Tablet 81 mg PO DAILY RF: 0 hydrochlorothiazide 25 mg tablet 25 mg PO DAILY RF: 0 Discontinued rosuvastatin 5 mg tablet 5 mg PO DAILY RF: 0 Other Ambulatory Orders: 30-Day Event Recorder (Routine) Location: None Selected Ordered By: Dr. Janis Watson Referrals / Follow Up: Dajuan Savage MD [NON-STAFF] - Within 2 Weeks Neo Coon [Primary Care Provider] - Within 2 Weeks Disposition Disposition (needs filled in before D/C Order can be placed): Home, Self Care Charges/Coding Visit Charges Inpatient E&M: 55896 Disch Hosp
--- NOTE | 2021-05-13 13:56 | TELEMED_ITS ---
[facility] has confirmed receipt of a request for visit. This document confirms receipt of the order initiating the consult. To find the results of the consultation, please view the patient's reports for the scanned Telemed Consult.
--- NOTE | 2021-05-13 14:50 | CHAPLAIN ---
Type of Pastoral Visit _x__ Initial Visit ___ Follow-up Visit ___ On-call Visit ___ General Patient Visit ___ Spiritual Assessment ___ Family Conference ___ Bereavement ___ Rapid Response ___ Code Blue ___ Other (describe below) Pastoral Care Referral From _x__ Patient ___ Family ___ Nurse ___ Physician ___ Machine Maintenance Repairer ___ Smooth And Burr Worker Composites ___ Other (describe below) Sacrament/Intervention _x__ Active listening ___ Anointing ___ Yarsanism ___ Bereavement ___ Communion _x__ Jovanna exploration ___ ___ Life review _x__ Prayer ___ Reconciliation ___ Sacrament of Sick _x__ Supportive presence ___ Wedding ___ Other (describe below) Pastoral Comments patient and her son are in the room; pt is resting in bed but very alert and able to talk freely; pt states from beginning about her jovanna and trust in [place] and that she would appreciate a prayer being given; pt reports great support from family and catholic friends; no other concerns
[2021-05-13 15:46] LABS: CRP < 2.90 mg/L (0.0-3.0)
[2021-05-13 15:50] LABS: Erythrocyte Sedimentation Rate 15 mm/hr (0-30)
== END 2021-05-13 11:55 | disposition home or self-care (01) ==
LOC: ED 15:14 → PCU 16:50
PROVIDERS: Admitting Provider Family Medicine; Emergency Provider Student in an Organized Health Care Education/Training Program; PCP Family Medicine; Visit Provider Student in an Organized Health Care Education/Training Program
DX: H34.231 Retinal artery branch occlusion, right eye (principal); I63.233 Cerebral infarction due to unspecified occlusion or stenosis of bilateral carotid arteries; I10 Essential (primary) hypertension; E78.5 Hyperlipidemia, unspecified; Z87.891 Personal history of nicotine dependence; Z79.899 Other long term (current) drug therapy; Z79.82 Long term (current) use of aspirin; Z79.02 Long term (current) use of antithrombotics/antiplatelets; Z87.11 Personal history of peptic ulcer disease; K21.9 Gastro-esophageal reflux disease without esophagitis
CPT/HCPCS: 36415; 70450; 70496; 70498; 70551; 71045; 80048; 80061; 82962; 84484; 85025; 85610; 85652; 85730; 86140; 92507; 92523; 92610; 93005; 93306; 94762; 96374; 97802; 99218; 99285; Q9967; A4216; G0378

== ENCOUNTER 2021-05-24 08:39 | Outpatient (CLI) | payer MEDICARE, SELFPAY ==
--- NOTE | 2021-05-24 08:49 | CDU_ITS ---
Reason For Study: Cental retinal artery occlusion, right ey Rt. Velocities/BP Lt. Velocities/BP Prox CCA 51.3/10.8 cm/sec. Prox CCA 144.8/15.2 cm/sec. Mid CCA 43.2/12.4 cm/sec. Mid CCA 113.8/13.3 cm/sec. Dist CCA 44.3/13.5 cm/sec. Dist CCA 73.6/11.5 cm/sec. Prox ICA 38.6/11.6 cm/sec. Prox ICA 112.6/18.2 cm/sec. Mid ICA 36/16.8 cm/sec. Mid ICA 130.1/20.8 cm/sec. Dist ICA 51.4/21.2 cm/sec. Dist ICA 117/20.4 cm/sec. Rt. ICA/CCA = 1.16. Lt. ICA/CCA = 1.14. Prox ECA 130.2/13.3 cm/sec. Prox ECA 154.3/9.4 cm/sec. Rt. Vert. 32.5/12.5 cm/sec. Lt. Vert. 61.8/12.6 cm/sec. Right Extracranial There is homogeneous, smooth atherosclerotic plaque noted in the right common carotid artery. There is heterogeneous, irregular atherosclerotic plaque noted in the right internal carotid artery. The right internal carotid artery is very tortuous. There is homogeneous, irregular atherosclerotic plaque noted in the right external carotid artery. Antegrade flow is noted in the right vertebral artery. Left Extracranial There is homogeneous, smooth atherosclerotic plaque noted in the left common carotid artery. There is heterogeneous, irregular atherosclerotic plaque noted in the left internal carotid artery. The left internal carotid artery is very tortuous. There is intimal thickening but no significant atherosclerotic plaque noted in the left external carotid artery. Antegrade flow is noted in the left vertebral artery. Procedure This is a Carotid Duplex examination using B-mode, color flow and specral Doppler. Carotid Duplex 66618. Exam performed in department. VL/Carotid Duplex Ultrasound Interpretation Summary Mild (<50%) stenosis right extracranial internal carotid. Mild (<50%) stenosis left extracranial internal carotid. Flow within the vertebral arteries is antegrade bilaterally. Ordering Physician: Rony Neri Referring Physician: Neo Coon Performed By: Maye Garner RVT
== END 2021-05-24 23:59 | disposition home or self-care (01) ==
PROVIDERS: PCP Family Medicine; Referring Provider Ophthalmology; Visit Provider Ophthalmology
DX: H34.11 Central retinal artery occlusion, right eye (principal)
CPT/HCPCS: 93880

== ENCOUNTER → 2021-09-20 | Outpatient (CLI) | payer MEDICARE, SELFPAY ==
[2021-09-20 10:59] LABS: AST(SGOT) 23 U/L (15-37); Alanine Aminotransfer ALT/SGPT 25 U/L (13-56); Albumin, Serum 3.7 g/dL (3.2-5.0); Alkaline Phosphatase 79 U/L (45-117); Bilirubin, Direct 0.27 mg/dL (0.00-0.30); Cholesterol 140 mg/dL (200); Globulin 3.5 g/dL (2.2-4.2); High Density Lipoprotein 60 mg/dL; Protein, Total 7.2 g/dL (6.4-8.2); Triglycerides 104 mg/dL; Very Low Density Lipoprotein 21 mg/dL (5-40)
== END | disposition home or self-care (01) ==
LOC: LAB 10:25
PROVIDERS: PCP Family Medicine; Referring Provider Psychiatry & Neurology Neurology; Visit Provider Psychiatry & Neurology Neurology
DX: H34.231 Retinal artery branch occlusion, right eye (principal)
CPT/HCPCS: 36415; 80061; 80076

== ENCOUNTER → 2022-08-04 | Outpatient (CLI) | payer MEDICARE, SELFPAY ==
[2022-08-04 12:31] LABS: Absolute Neutrophil Count 3.7 X10^3/uL (2.0-7.7); Basophil# 0.07 X10^3/uL; Basophil% 1.2 % (0-1); Eosinophil# 0.14 X10^3/uL; Eosinophils% 2.4 % (0-5); Hematocrit 42.9 % (37-47); Hemoglobin 13.9 g/dL (12.0-15.0); Lymphocyte % 23.9 % (19-41); Mean Corp Hgb Conc 32.4 g/dL (32-36); Mean Corpuscular Hgb 28.2 pg (27.0-32.0); Monocyte# 0.55 X10^3/uL; Monocyte% 9.4 % (0-10); NRBC Flagged by Analyzer 0 % (0-5); Neutrophil # 3.71 X10^3/uL (2.7-7.7); Neutrophil % 63.1 % (47-70); Platelet Count 236 K/mm3 (150-450); RBC Distribution Width CV 14.3 % (11.6-14.6); RBC Distribution Width SD 45.5 fl (35.1-43.9); Red Blood Count 4.93 M/mm3 (4.2-5.4); White Blood Count 5.9 K/mm3 (4.4-11.0)
[2022-08-04 13:00] LABS: Vitamin D,25 Hydroxy 87.9 ng/mL
[2022-08-04 13:13] LABS: AST(SGOT) 16 U/L (15-37); Alanine Aminotransfer ALT/SGPT 23 U/L (13-56); Albumin, Serum 3.6 g/dL (3.2-5.0); Alkaline Phosphatase 87 U/L (45-117); Anion Gap 6 (5-15); BUN 19 mg/dL (7-18); BUN/Creat Ratio 16.5 RATIO (10-20); Calcium,Total 9.2 mg/dL (8.5-10.1); Chloride 107 mmol/L (98-107); Cholesterol 125 mg/dL (200); Creatinine, Serum 1.15 mg/dL (0.55-1.02); EST Glomerular Filtration Rate 48 mL/min (>60); Est Glom Filt Rate - Afr Amer 58 mL/min (>60); Globulin 3.5 g/dL (2.2-4.2); Glucose 98 mg/dL (74-106); High Density Lipoprotein 50 mg/dL; Potassium 3.5 mmol/L (3.5-5.1); Protein, Total 7.1 g/dL (6.4-8.2); Sodium Level 143 mmol/L (136-145); Thyroid Stim Hormone (TSH) 2.27 uIU/mL (0.358-3.74); Triglycerides 104 mg/dL; Very Low Density Lipoprotein 21 mg/dL (5-40)
== END | disposition home or self-care (01) ==
LOC: BFHLAB 09:13
PROVIDERS: PCP Nurse Practitioner Family; Referring Provider Nurse Practitioner Family; Visit Provider Nurse Practitioner Family
DX: Z00.00 Encounter for general adult medical examination without abnormal findings (principal); I10 Essential (primary) hypertension; E78.5 Hyperlipidemia, unspecified; E55.9 Vitamin D deficiency, unspecified; Z13.29 Encounter for screening for other suspected endocrine disorder
CPT/HCPCS: 36415; 80053; 80061; 82306; 84443; 85025

== ENCOUNTER → 2023-10-19 | Outpatient (CLI) | payer MEDICARE, SELFPAY ==
[2023-10-19 15:23] LABS: Absolute Lymphocyte Count 1.43 X10^3/uL (0.83-4.51); Basophil# 0.06 X10^3/uL; Basophil% 0.8 % (0-1); Eosinophil# 0.11 X10^3/uL; Eosinophils% 1.5 % (0-5); Hematocrit 43.7 % (37-47); Hemoglobin 13.7 g/dL (12.0-15.0); Lymphocyte # 1.43 X10^3/ul (0.83-4.51); Lymphocyte % 19.9 % (19-41); Mean Corp Hgb Conc 31.4 g/dL (32-36); Mean Corpuscular Hgb 27.5 pg (27.0-32.0); Mean Corpuscular Volume 87.6 fL (81-99); Mean Platelet Vol. 11.5 fl (6.2-12.0); Monocyte# 0.61 X10^3/uL; Monocyte% 8.5 % (0-10); NRBC Flagged by Analyzer 0 % (0-5); Neutrophil # 4.98 X10^3/uL (2.7-7.7); Neutrophil % 69.2 % (47-70); Platelet Count 247 K/mm3 (150-450); RBC Distribution Width CV 14.2 % (11.6-14.6); RBC Distribution Width SD 45.6 fl (35.1-43.9); Red Blood Count 4.99 M/mm3 (4.2-5.4); White Blood Count 7.2 K/mm3 (4.4-11.0)
[2023-10-19 15:40] LABS: ALB/GLOB Ratio 1.1 RATIO (0.9-2.4); AST(SGOT) 22 U/L (15-37); Alanine Aminotransfer ALT/SGPT 24 U/L (13-56); Albumin, Serum 3.8 g/dL (3.2-5.0); Alkaline Phosphatase 90 U/L (45-117); Anion Gap 8 (5-15); BUN 14 mg/dL (7-18); BUN/Creat Ratio 15.8 RATIO (10-20); Calcium,Total 9.4 mg/dL (8.5-10.1); Chloride 103 mmol/L (98-107); Creatinine, Serum 0.89 mg/dL (0.55-1.02); EST Glomerular Filtration Rate 65 mL/min (>60); Est Glom Filt Rate - Afr Amer 78 mL/min (>60); Globulin 3.6 g/dL (2.2-4.2); Glucose 91 mg/dL (74-106); Potassium 3.7 mmol/L (3.5-5.1); Protein, Total 7.4 g/dL (6.4-8.2); Sodium Level 137 mmol/L (136-145)
== END | disposition home or self-care (01) ==
LOC: BFHLAB 13:46
PROVIDERS: PCP Nurse Practitioner Family; Referring Provider Nurse Practitioner Family; Visit Provider Nurse Practitioner Family
DX: I10 Essential (primary) hypertension (principal)
CPT/HCPCS: 36415; 80053; 85025

== ENCOUNTER → 2023-11-19 | Outpatient (CLI) | payer MEDICARE, SELFPAY ==
--- NOTE | 2023-11-19 06:46 | CT_ITS ---
CT LEFT LOWER EXTREMITY WITH 3-D IMAGING CLINICAL INDICATION: KNEE PAIN TECHNIQUE: Axial CT images of the left lower extremity (including left hip, left knee, and left ankle) was performed without IV contrast material. Coronal and sagittal reformats were provided. The protocol utilizes one or more of the following dose reduction techniques: automated exposure control, adjustment of mA and/or kV according to patient size, and/or use of iterative reconstruction technique. RADIATION DOSAGE (If Supplied By Facility): CTDIvol = ( 18.76 ) mGy, DLP = ( 1267.00 ) mGycm COMPARISON: Left knee radiographs dated 10/24/2019. FINDINGS: Bones: There is mild degenerative arthrosis of the left hip joint. 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 There is severe degenerative arthrosis of the medial femorotibial compartment of the left knee with joint space narrowing, marginal osteophyte formation, subchondral sclerosis, and intra-articular gas. There is mild degenerative arthrosis of the patellofemoral and lateral femorotibial compartments of the left knee. Unremarkable left ankle. Osseous structures are intact without evidence of fracture or dislocation. No lytic or blastic osseous masses. Soft Tissues: There is mild chronic sigmoid diverticulosis without acute diverticulitis. There are atherosclerotic calcifications. The deep soft tissue structures are unremarkable. The superficial soft tissues are unremarkable without evidence of edema, hematoma, or foreign body. CT/Extremity Lower without Contra IMPRESSION: Tricompartment degenerative arthrosis of the left knee, most severe in the medial femorotibial compartment. Electronically Signed: Jonatan Miramontes MD at 9:16 EDT ,
== END | disposition home or self-care (01) ==
LOC: CT 06:39
PROVIDERS: PCP Nurse Practitioner Family; Referring Provider Student in an Organized Health Care Education/Training Program; Visit Provider Student in an Organized Health Care Education/Training Program
DX: M17.12 Unilateral primary osteoarthritis, left knee (principal)
CPT/HCPCS: 73700

== ENCOUNTER 2023-11-30 11:54 | Observation (INO) | payer MEDICARE, SELFPAY ==
[2023-11-30] VITALS (16 sets, daily range): BP systolic 86–146; BP diastolic 39–94; PULSE 74–88; RESP 16–18; TEMP 36.1–36.6; O2SAT 93–996; BMI 27.1
[2023-11-30] MEDS: Lactated Ringers 1,000 ML 999 ML IV ×2 (09:02→12:00)
[2023-11-30] MEDS: Gabapentin 600 MG Tablet PO (09:03)
[2023-11-30] MEDS: Magnesium 1 GM over 15 mins IV (09:03)
[2023-11-30] MEDS: Celecoxib 200 MG Capsule 400 MG PO (09:04)
[2023-11-30] MEDS: Acetaminophen 500 MG Tablet 1000 MG PO ×3 (09:04→20:24)
--- NOTE | 2023-11-30 09:35 | PRE.ANES_ITS ---
ASA Classification* ASA Classification ASA Classification: 2 Assessment & Plan Anesthesia* Anesthesia Assessment Anesthesia Assessment: Discussed sedation and/or anesthesia options, risks, benefits, and alternatives with patient/parents/legal guardian/POA. Questions invited. The patient/parents/legal guardian/POA seems to understand and agrees to proceed with anesthesia plan. Reviewed the physical assessment, medical history, allergy history and patient home medications list prior to surgery/procedure/anesthetic and documented any changes. Performed airway and anesthesia risk assessments. Anesthesia Type Anesthesia Type: Spinal History Source History Obtained from:: Patient and Chart Anesthesia Focused Assessment* Temperature: 97.3 F Pulse Rate: 80 Blood Pressure: 146/54 Respiratory Rate: 18 Pulse Ox: 996 Oxygen Delivery Method: Room Air Airway Assessment Mouth opens: >3 cm Mallampati Score: II Teeth Condition: Dentures (Top dentures are out.) and Missing (Few missing molars either side of lower jaw) Neck Range of motion (ROM): Full ROM Pertinent Findings EKG Pertinent Findings:: October 19, 2023 sinus rhythm. Left atrial enlargement. Incomplete right bundle branch block. Left ventricular hypertrophy. There is minimal change from EKG of May 11, 2021. ECHO Pertinent Findings:: May 13, 2021. Ejection fraction 60%. Pulmonary artery systolic pressure is 28 mmHg Focused Labs Anesthesia Preop lab: CBC WBC 7.2 K/mm3 (4.4-11.0) 10/19/23 13:46 RBC 4.99 M/mm3 (4.2-5.4) 10/19/23 13:46 Hgb 13.7 g/dL (12.0-15.0) 10/19/23 13:46 Hct 43.7 % (37-47) 10/19/23 13:46 Plt Count 247 K/mm3 (150-450) 10/19/23 13:46 CHEMISTRY Potassium 3.7 mmol/L (3.5-5.1) 10/19/23 13:46 Sodium 137 mmol/L (136-145) 10/19/23 13:46 Magnesium 2.0 mg/dL (1.6-2.6) 11/19/23 07:07 BUN 14 mg/dL (7-18) 10/19/23 13:46 Creatinine 0.89 mg/dL (0.55-1.02) 10/19/23 13:46 Glucose 91 mg/dL (74-106) 10/19/23 13:46 POC Glucose 139 mg/dL (70-110) H 05/11/21 14:29 TSH 2.27 uIU/mL (0.358-3.74) 08/04/22 09:15 COAG PT 12.3 SECONDS (11.7-14.9) 05/11/21 14:30 Pre-Assessment Diagnosis/Proposed Procedure Planned Operative Procedure(s): ROBOTIC ASSISTED LEFT TOTAL KNEE ARTHROPLASTY Anesthesia History Anesthesia History - lithographers printer: Anesthesia History - lithographers printer Hx Hospitalization No 11/11/23 13:49 Any Problems With Anesthesia No 11/11/23 13:49 Cholinesterase deficiency No 11/11/23 13:49 You/Your Family Experience No 11/11/23 13:49 fever (hyperthermia) with Relationship Recent Exposure to Contagious No 11/30/23 09:06 Disease Does patient have nerve No 11/11/23 13:49 stimulator Patient instructed to have device shut off --Does patient have Pacemaker No 11/30/23 09:06 or ICD? When Was Last Pacemaker Check QUESTION #4 FULL TEXT: You/Your Family Experience fever (hyperthermia) with Anesthesia Last Oral Intake Last Oral intake: Last Oral Intake NPO since 00:00 11/30/23 09:06 Meds taken in AM with sips of Yes 11/30/23 09:06 water? Meds patient instructed to take am of surgery PONV PONV - lithographers printer: PONV - lithographers printer Female Yes 11/11/23 13:49 HX of Motion Sickness No 11/11/23 13:49 HX of N/V After Surgery Yes 11/11/23 13:49 Non-Smoker Yes 11/11/23 13:49 Duration of Surgery greater Yes 11/11/23 13:49 than 60 minutes Number of Risk Factors 4 11/11/23 13:49 PONV Score Severe Risk 11/11/23 13:49 Height & Weight Height & Weight: Anesthesia: Height & Weight Height 5 ft 6 in 11/30/23 09:06 Weight: 76.204 kg 11/30/23 09:06 Body Mass Index (BMI) 27.1 11/30/23 09:06 Respiratory Assessment Respiratory Assessment - lithographers printer: Respiratory Tract Infection Hx - lithographers printer Hx Respiratory Tract Infection No 11/11/23 13:49 STOP Sleep Apnea STOP Sleep Apnea - lithographers printer: STOP Sleep Apnea - lithographers printer Hx Hypertension Yes: CONTROLLED WITH MED 11/11/23 13:49 Hx Sleep Apnea No 11/11/23 13:49 CPAP BIPAP Do you snore loudly (louder No 11/11/23 13:49 than talking or can be heard Do you often feel tired/ No 11/11/23 13:49 fatigued/ sleepy during daytime? Has anyone observed you stop No 11/11/23 13:49 breathing during sleep? STOP Results Negative 11/11/23 13:49 QUESTION #5 FULL TEXT : Do you snore loudly (louder than talking or can be heard through closed doors)? Tobacco Use History Tobacco Use History - lithographers printer: Tobacco Use History - lithographers printer Tobacco Use Non-smoker 05/13/21 00:36 Smoking Status Former smoker 11/11/23 13:49 Hx Tobacco Use No 11/11/23 13:49 Years Smoking Packs Smoked per Day Smoking Cessation Date was Yes - quit smoking within 15 11/11/23 13:49 within the last 15 years years Hx Smoking Cessation Date 04/06/13 11/11/23 13:49 Hx Smoking Cessation No 11/11/23 13:49 Counseling Hematologic Medial History Hematologic Hx - lithographers printer: Hematologic Medical Hx - cell room operator Hx of Blood Transfusion No 11/11/23 13:49 Hx of Transfusion in last 3 No 11/11/23 13:49 Months Date of Last Transfusion (if within last 3 months) Ever experience any problems No 11/11/23 13:49 with transfusion(s)? Specify any problems Hx of Preganancy in last 3 No 11/11/23 13:49 Months Nurse Filling Out Transfusion DSCHRIBER 11/11/23 13:49 & Questions: Date: 11/11/23 11/11/23 13:49 Time: 13:50 11/11/23 13:49 Patient unable to answer at this time (ie. confused, unrespo /Reproduction History /Reproductive History - lithographers printer: /Reproductive Hx- lithographers printer Hx Now No 11/11/23 13:49 Gestational Age (in weeks): EDC: Hx Hx Para Hx Section SAB No 11/11/23 13:49 Active Medications Active Medications: Current Medications Generic Name Dose Route Start Last Admin Trade Name Jermaine PRN Reason Stop Dose Admin Acetaminophen 1,000 mg 11/30/23 13:00 11/30/23 09:04 Acetaminophen 500 Mg Tablet PO 11/30/23 13:01 1,000 mg X1 ONE Administration Celecoxib 400 mg 11/30/23 13:00 11/30/23 09:04 Celecoxib 200 Mg Capsule PO 11/30/23 13:01 400 mg X1 ONE Administration Sodium Chloride 77.4 ml/ 0 ml 11/30/23 13:00 Ropivacaine 200 mg/ OPERA.SITE 11/30/23 13:01 Epinephrine HCl 0.6 mg/ X1 ONE Ketorolac Tromethamine 30 mg/ Morphine Sulfate 5 mg Dexamethasone Sodium Phosphate 10 mg 11/30/23 13:00 Dexamethasone 10 Mg/Ml Vial IV 11/30/23 13:01 X1 ONE Gabapentin 600 mg 11/30/23 13:00 11/30/23 09:03 Gabapentin 600 Mg Tablet PO 11/30/23 13:01 600 mg X1 ONE Administration Lactated Ringer's 1,000 mls @ 999 mls/hr 11/30/23 13:00 11/30/23 09:02 IV 11/30/23 14:00 999 mls/hr .Q1H1M FLAKO Administration Cefazolin Sodium 2 gm/ Sodium 110 mls @ 150 mls/hr 11/30/23 13:00 Chloride IV 11/30/23 13:43 PREOP ONE Tranexamic Acid 1,000 mg/ 110 mls @ 660 mls/hr 11/30/23 13:00 Sodium Chloride IV 11/30/23 13:09 X1 ONE Tranexamic Acid 1,000 mg/ 110 mls @ 660 mls/hr 11/30/23 13:00 Sodium Chloride IV 11/30/23 13:09 X1 ONE Lactated Ringer's 1,000 mls @ 999 mls/hr 11/30/23 13:00 IV 11/30/23 14:00 .Q1H1M FLAKO Lactated Ringer's 1,000 mls @ 125 mls/hr 11/30/23 13:00 IV 11/30/23 20:59 .Q8H FLAKO Lactated Ringer's 1,000 mls @ 75 mls/hr 11/30/23 13:00 IV 12/01/23 02:19 .[id number] FLKAO Magnesium Sulfate 1 gm/ 102 mls @ 408 mls/hr 11/30/23 13:00 11/30/23 09:03 Dextrose IV 11/30/23 13:14 408 mls/hr X1 ONE Administration Insulin Human Lispro 1 - 6 unit 11/30/23 13:00 Insulin Lispro 100 Unit/Ml Insuln.Pen SC 11/30/23 18:00 Q4H PRN PRN BG>/= 180, SEE PROTOCOL Protocol PFSH Medical History (Updated 11/11/23 @ 13:58 by Brianna Smiley) Stroke/cerebrovascular accident Loss of hearing Wears glasses Wears dentures Anxiety Arthritis Restless legs Vertigo Gastric reflux Former smoker History of pain when walking History of edema History of echocardiogram Retinal artery branch occlusion of right eye History of peptic ulcer Hyperlipidemia Hypertension Home Medications ?Medication ?Instructions ?Recorded ?Last Taken ?Type amlodipine 5 mg tablet 5 mg PO DAILY blood pressure 05/11/21 11/30/23 History aspirin 81 mg tablet 162 mg PO QHS heart health 05/11/21 11/27/23 History hydrochlorothiazide 25 mg tablet 25 mg PO DAILY diuretic 05/11/21 11/29/23 History pantoprazole 40 mg tablet,delayed 40 mg PO DAILY reflux 05/11/21 11/30/23 06:30 History release atorvastatin 40 mg tablet 40 mg PO QHS #30 tabs 05/13/21 11/29/23 Rx multivitamin (Multiple Vitamins 1 tab PO DAILY 07/29/21 11/29/23 History tablet) dorzolamide 2 % eye drops 1 drp RIGHT EYE BID 11/11/23 11/30/23 06:30 History meclizine 25 mg tablet 25 mg PO DAILY vertigo 11/11/23 11/30/23 06:30 History Allergy/AdvReac Type Severity Reaction Status Date / Time No Known Allergies Allergy Verified 11/30/23 08:59 Family History Other CVA (cerebral vascular accident) Heart disease Surgical History (Updated 11/11/23 @ 13:57 by Brianna Smiley) Hx of colonoscopy Hx of abdominal surgery Hx of right cataract extraction Hx of left cataract extraction Status post hysterectomy Social History (Reviewed 11/28/21 @ 13:15 by Coco Paulson Smoking Status: Former smoker Tobacco: How many years used: 30 alcohol intake: never substance use type: does not use what type of physical activity do you participate in: walking frequency: daily mara/buddhist: Buddhist seatbelt use: always Review of Systems (Anesthesia) ROS Narrative System reviewed and no additional complaints, except as documented.
[2023-11-30 09:41] LABS: Bedside Glucose 78 mg/dL (74-106)
[2023-11-30] MEDS: Cefazolin 2 GM in 0.9% Normal Saline (100mL Bag) 100 ML IV (10:00)
[2023-11-30] MEDS: TXA 1000mg in NS100 100ml (IVPB at Incision) 660 MG IV (10:10)
[2023-11-30] MEDS: dexAMETHasone 10 MG/ML Vial IV (10:15)
--- NOTE | 2023-11-30 10:30 | KNEE_PTH ---
PATIENT: BRIGHT RAO LOC: MS3 U#:[id number] AGE/SX: 83/F ROOM: MS310 RE11/30/[address]: Dr. Wayne Cameron DO : 1940 BED: 1 DIS: 12/01/2023 SPEC #: [id number] RECD: 11/30/23 13:12 STATUS: VAHID PAOLA #: [id number] NICOLASA: 11/30/23 10:[address]: Wayne Cameron DEPT: SURGICAL PATHOLOGY RECD BY: Lelia Burgess ENTERED: 11/30/23 13:54 SP TYPE: TOTAL KNEE OTHR DR: Yeimy Rodriguez, GAUGER CHIEF DELIVERY-C Tissues: Knee, NOS Procedures: Decalcification bone/plaque Surgery Specimen Level IV HEADER OPERATION: Robotic assisted left total knee arthroplasty PRE-OP DIAGNOSIS: Osteoarthritis left knee TISSUE SUBMITTED: Bone and tissue left knee MICROSCOPIC DIAGNOSIS Bone and tissue of left knee, total knee resection: Severe degenerative joint disease. Polarizable crystals suggestive of pseudogout. AM: 12/03/2023 MICROSCOPIC DESCRIPTION Slides are reviewed. GROSS DESCRIPTION Received is one container designated bone and soft tissue left knee. The specimen consists of multiple fragments of saldivar-yellow bone measuring in aggregate 14.0 x 9.0 x 2.5 cm. Also in the specimen container are multiple fragments of yellow-white soft tissue measuring in aggregate 6.0 x 2.0 x 1.0 cm. A number of bony fragments contain articular surfaces consistent with tibial plateau and femoral condyle and displaying prominent osteophyte formation, eburnation and bone erosion. Campus Recruiting Intern sections are submitted in two cassettes as follows: 1 - soft tissue, 2 - bone after decalcification. / AM. 11/30/2023 TC:5 [facility]: [id number], [id number]
[2023-11-30] MEDS: JPS (Morphine 10mg/ml) OPERA.SITE (11:05)
[2023-11-30] MEDS: TXA 1000mg in NS100 100ml (IVPB at Closure) 660 MG IV (11:22)
--- NOTE | 2023-11-30 11:54 | PCM.POST.ANE ---
Anesthesia: Postop Eval I Current Vital Signs Temperature: 97.7 F Pulse Rate: 78 Blood Pressure: 92/46 Respiratory Rate: 18 Pulse Ox: 93 Assessment Airway patent: Yes Spontaneous unlabored respirations: Yes nausea: No Vomiting: No Anesthesia Complication: No Fluid Hydration Crystalloid volume administer (ml): 1,000 Total IV fluid infused: 1,000 Progress Note Anesthesia document: Postop Eval 1 completed: Yes
--- NOTE | 2023-11-30 11:55 | PCM.OPRPT ---
Report of Operation Description of Surgical Findings:: Preoperative diagnosis: Left knee primary osteoarthritis Postoperative diagnosis: Left knee primary osteoarthritis Procedure: Cemented left total knee arthroplasty Surgeon: Wayne Cameron DO Rail Switchman: Lidya Wisdom PA-C Anesthesia: Spinal with sedation, adductor canal block Anesthesiologist: Dr. Carranza Complications: None apparent Drains: None Estimated blood loss: 50 cc Urinary output: None recorded IV fluids: 1000 cc crystalloid Specimens: Total knee resections Surgical implants: [place] triathlon cruciate retaining femoral # 4, primary tibial baseplate # 3, triathlon X3 tibial bearing insert CS 10 mm Indications: This is a 83-year-old female seen in the outpatient setting diagnosed with left knee osteoarthritis with significant varus deformity. She failed nonoperative management with intra-articular corticosteroid injections, activity modification, bracing, [id number]-fnaridr analgesics. X-rays revealed grade 4 medial compartment changes. I recommended a left total knee arthroplasty. The risk, benefits, alternatives to procedure reviewed with patient at length and she agreed to proceed. Risks included but were not limited to bleeding, infection, loss of life or limb, need for additional surgery, persistent pain, intraoperative or postoperative fracture, instability, loosening of components, wound complications, stiffness, neurovascular injury, DVT or PE. Patient expressed understanding these risks and wished to proceed with surgery. Informed consent was obtained in the outpatient setting. Description of procedure: Patient was identified in the preoperative holding area by name, medical record number, and date of . Informed consent was confirmed with the patient. The operative knee was marked with a surgical marker. At time of her procedure, patient brought to the operative suite and positioned supine a standard operating table. Anesthesia then administered a spinal anesthetic. She was then repositioned in the supine position with all bony prominences well-padded. We then placed a well-padded pneumatic tourniquet on the left upper thigh. The left upper extremity was brought across patient's chest throughout the procedure. We then prepped and draped the left lower extremity in a normal, sterile orthopedic fashion. We performed a timeout with all parties in attendance in agreement with the side, site, operation be performed. No concerns were voiced and would like to proceed with surgery. 2 g Ancef was administered prior to the incision by anesthesia staff as well as 1 g IV TXA. First exsanguinated the left lower extremity with a Esmarch bandage. Tourniquet was inflated to 280 mmHg, which remained up for 55 minutes. Esmarch was removed. I planned a standard midline approach to the left knee approximately 15 cm in length. Skin was sharply incised with a 10 blade scalpel developing full-thickness layers down to the retinaculum. Layers were developed identifying the VMO. I then planned a standard medial parapatellar arthrotomy performed in flexion. The anterior horn of the medial meniscus was released. Hoffa's fat pad was then released. I then everted the patella in extension and brought the knee into 90 degrees of flexion. The anterior horn of the lateral meniscus was then released. The ACL was split in its mid substance with a 10 blade. We then brought the knee back into extension. The patella was everted. Knee was brought to flexion. Hoffa's fat pad was excised. The patella demonstrated grade 1?2 chondromalacia. Medial facetectomy was performed. I elected to maintain the stillaguamish articular cartilage and not resurface the patella. I then placed pins in the metaphyseal distal femur medial to lateral for the Maury arrays. In similar fashion, I made a 2 cm incision approximately a handsbreadth distal to the tibial tubercle along the medial aspect of the tibia, drilling 2 bicortical pins for the tibial array. The knee was brought into flexion. The patella was subluxed laterally but not everted. Medial lateral retractors were placed. We then utilized the Reach Pros software to confirm our planned surgical procedure and oriented with the patient's osseous anatomy. All checks with the Reach Pros system were confirmed. Patient had a significant fixed varus deformity after performing stress examination utilizing the Reach Pros software. We elected to place the tibial baseplate in 2 degrees of varus to allow for appropriate balancing. Sawblade was then brought in. I first started with the tibial cut, ensuring protection of the MCL and patellar tendon. A tibial wafer was then excised. I then proceeded to make the posterior femoral, anterior, anterior chamfer cuts with the same blade. Ligaments were protected with Intermedics retractors. Sawblade was then exchanged to perform the distal femoral and posterior chamfer cuts. The robot was then removed from the surgical field. Remaining loose bone and meniscus was excised carefully. Posterior osteophytes were removed from the distal femur with a curved osteotome and rongeur. Trial components were then placed. Balance was excellent in both extension and 90 degrees flexion. No mid flexion instability was apparent. Patella was trialed. Tracking was excellent. We then marked for tibial baseplate. Distal femoral pegs were drilled. Tibial keel was punched. Trials were removed. Periarticular block was administered. The wound was copiously irrigated with normal saline solution. Simplex cement was then mixed on the back table. Components were then cemented in place with excess cement being removed. Cement was allowed to cure with the components in full extension utilizing a 10 mm trial polyethylene component. While the cement was curing, Betadine solution was irrigated into the wound and the wound edges. After cement had cured fully, trial polyethylene was removed. Tourniquet was deflated. Hemostasis was excellent. An additional 1 g TXA was administered IV. I selected a size 10 mm polyethylene which was placed and impacted per surgical instrument repair specialist recommendations. Final components appeared very well balanced with excellent range of motion. The wound was copiously irrigated with normal saline solution. Capsule was closed watertight with #1 strata fix barbed suture. Deeper bursal layer was reapproximated with 0 Vicryl suture. Dermis was reapproximated buried interrupted 2-0 Vicryl suture. Skin was finally reapproximated veronika. Patient tolerated the procedure well without apparent complication. She was safely awakened in the operative suite, transferred to his hospital bed and subsequently to PACU in stable condition. Need for skilled graduate research assistant: Lidya Wisdom PA-C was critical to the outcome of the case. During the course of the procedure the physician graduate research assistant played a vital role. Her intimate knowledge of my steps in the procedure aided in safe and expedient completion of the procedure. The PA played a vital role in positioning particularly in obtaining the appropriate positioning. The PA was also vital in the retraction of soft tissues during the exposure and projecting vital structures. The PA was also vital and protecting soft tissues during times of bony cuts. She also played a vital role in closure with my direct supervision. The PA was also important during reduction and dislocation of the joint and trials intraoperatively. Post Operative Plan: Patient will be placed in observation overnight given her age and comorbidities. Anticipate discharge home postoperative day #1 Weightbearing: Range of motion and weightbearing as tolerated left lower extremity. Antibiotics: Ancef 2 g every 8 hours x 3 doses DVT Prophylaxis: Multimodal with SCDs, aspirin 81 mg twice daily, GEORGE hose, early mobilization Lang: None Dressing: Maintain silver dressing x5 days X-Rays: 2-week x-rays in the office. Follow-up: 2 weeks for staple removal
[2023-11-30] MEDS: Lactated Ringers 1,000 ML 125 ML IV (14:01)
--- NOTE | 2023-11-30 14:06 | POSTOPAN2_ITS ---
Anesthesia Postop Eval I Sum Postop Eval Completion status Anesthesia document: Postop Eval 1 completed: Yes Anesthesia Postop Eval I Summary Anesthesia Postop Eval I Summary: Anesthesia Postop Eval I: Assessment Summary Airway patent Yes 11/30/23 11:54 ASSISTANT INVENTORY MANAGER.CSIR Spontaneous unlabored Yes 11/30/23 11:54 ASSISTANT INVENTORY MANAGER.CSIR respirations Mental status nausea No 11/30/23 11:54 ASSISTANT INVENTORY MANAGER.CSIR Vomiting No 11/30/23 11:54 ASSISTANT INVENTORY MANAGER.CSIR Anesthesia Postop Eval I: Fluid Summary Crystalloid volume administer 1,000 11/30/23 11:54 ASSISTANT INVENTORY MANAGER.CSIR (ml) Colloids volume administered ( ml) Blood Product volume administered (ml) Total IV fluid infused 1,000 11/30/23 11:54 ASSISTANT INVENTORY MANAGER.CSIR Anesthesia Postop Eval I: Summary Notes Anesthesia Complication No 11/30/23 11:54 ASSISTANT INVENTORY MANAGER.CSIR Anesthesia Complication Comment: Post-operative progress note Anesthesia: Postop Eval II Evaluation Mental status: Awake and Calm Pain Level: 1 nausea: No Vomiting: No Progress Note Post-operative progress note: Adductor block done in PACU. No complications. Complications Anesthesia Complication: No
--- NOTE | 2023-11-30 14:06 | PCM.POSTANE2 ---
Anesthesia Postop Eval I Sum Postop Eval Completion status Anesthesia document: Postop Eval 1 completed: Yes Anesthesia Postop Eval I Summary Anesthesia Postop Eval I Summary: Anesthesia Postop Eval I: Assessment Summary Airway patent Yes 11/30/23 11:54 FENCE MAKING MACHINE OPERATOR.CSIR Spontaneous unlabored Yes 11/30/23 11:54 FENCE MAKING MACHINE OPERATOR.CSIR respirations Mental status nausea No 11/30/23 11:54 FENCE MAKING MACHINE OPERATOR.CSIR Vomiting No 11/30/23 11:54 FENCE MAKING MACHINE OPERATOR.CSIR Anesthesia Postop Eval I: Fluid Summary Crystalloid volume administer 1,000 11/30/23 11:54 FENCE MAKING MACHINE OPERATOR.CSIR (ml) Colloids volume administered ( ml) Blood Product volume administered (ml) Total IV fluid infused 1,000 11/30/23 11:54 FENCE MAKING MACHINE OPERATOR.CSIR Anesthesia Postop Eval I: Summary Notes Anesthesia Complication No 11/30/23 11:54 FENCE MAKING MACHINE OPERATOR.CSIR Anesthesia Complication Comment: Post-operative progress note Anesthesia: Postop Eval II Evaluation Mental status: Awake and Calm Pain Level: 1 nausea: No Vomiting: No Progress Note Post-operative progress note: Adductor block done in PACU. No complications. Complications Anesthesia Complication: No
[2023-11-30] MEDS: Cefazolin 1 GM/50 ML BAG IV (17:43)
[2023-11-30] MEDS: Lactated Ringers 1,000 ML 75 ML IV (20:21)
[2023-11-30] MEDS: Senna/Docusate Sodium 1 Tablet 2 TABLET PO (20:23)
[2023-11-30] MEDS: Aspirin 81 MG TAB.CHEW PO (20:23)
[2023-11-30] MEDS: Atorvastatin Calcium 40 MG Tablet PO (20:23)
[2023-12-01] MEDS: Cefazolin 1 GM/50 ML BAG IV (01:22)
[2023-12-01 01:23] VITALS: BP 128/60; PULSE 92; RESP 16; TEMP 36.7; O2SAT 93
[2023-12-01 05:30] VITALS: BP 147/71; PULSE 99; RESP 16; TEMP 36.8; O2SAT 92
[2023-12-01] MEDS: Acetaminophen 500 MG Tablet 1000 MG PO ×2 (06:02→13:05)
[2023-12-01 07:11] LABS: Hematocrit 34.5 % (37-47); Hemoglobin 11.2 g/dL (12.0-15.0); Mean Corp Hgb Conc 32.5 g/dL (32-36); Mean Corpuscular Hgb 27.7 pg (27.0-32.0); Mean Corpuscular Volume 85.2 fL (81-99); Mean Platelet Vol. 11.2 fl (6.2-12.0); Platelet Count 211 K/mm3 (150-450); RBC Distribution Width CV 14.4 % (11.6-14.6); RBC Distribution Width SD 44.7 fl (35.1-43.9); Red Blood Count 4.05 M/mm3 (4.2-5.4); White Blood Count 12.3 K/mm3 (4.4-11.0)
--- NOTE | 2023-12-01 07:37 | PCM.PN.ORT ---
Subjective Subjective Patient seen and examined. Pain controlled current pain regimen. Up with therapy and nursing staff. Denies fevers, chills, nausea vomiting, chest pain or shortness of breath. Urinating without difficulty. Objective Data Objective Data Vital Signs: Vital Signs Temp Pulse Resp BP Pulse Ox O2 Del Method O2 Flow Rate 98.3 F 99 16 147/71 H 92 Room Air 4 12/01/23 05:30 12/01/23 05:30 12/01/23 05:30 12/01/23 05:30 12/01/23 05:30 12/01/23 05:30 11/30/23 12:58 Oxygen Flow Rate (L/min) 4 Oxygen Delivery Method Room Air Weight: 168 lb Body Mass Index (BMI) 27.1 Intake & Output: Intake and Output for Last 24 Hours 11/29/23 11/30/23 12/01/23 23:59 23:59 23:59 Intake Total 5767.42 / 5767.42 50 / 50 Balance 5767.42 / 5767.42 50 / 50 Lab / Micro Data 12/01/23 06:37 12/01/23 06:37 Labs: Laboratory Results - last 24 hr 11/30/23 08:50: POC Glucose 78 12/01/23 06:37: WBC 12.3 H, RBC 4.05 L, Hgb 11.2 L, Hct 34.5 L, MCV 85.2, MCH 27.7, MCHC 32.5, RDW Std Deviation 44.7 H, RDW Coeff of Vamshi 14.4, Plt Count 211, MPV 11.2 Micro: Microbiology 11/19/23 07:07 Swab (Method) Nasal Screen MRSA/MSSA - Final Physical Exam Narrative General - A&Ox3, NAD. VSS/AF Left lower extremity -incisional dressing C/D/I. SILT Sural, Saphenous, SPN, DPN, Tibial N. distributions. DP, PT 2+. BCR. DF, PF, EHL 5/5. No calf TTP. Assessment & Plan Assessment/Plan (1) Presence of left artificial knee joint: PLAN: POD# 1 s/p robotic arm assisted left total knee arthroplasty - Pain control - PT/OT -standard protocol - DVT PPX -Multimodal with twice daily 81 mg aspirin, SCDs, GEORGE hose, early mobilization - Case management - D/C planning Anticipate discharge to home once therapy goals are met today.
--- NOTE | 2023-12-01 07:38 | DCINST_ITS ---
Discharge Instructions Follow Up Care Test Results: Test results from this visit will be discussed in further detail at your follow- up appointment, if applicable. Discharge Plan Admission Admit Date/Time: 11/30/23 11:54 Primary Reason for Your Visit: Left knee replacement Attending Provider: Wayne Cameron Primary Care Provider: Yeimy Rodriguez Instructions Additional Instructions / Restrictions: Follow preprinted instructions from your surgeons office Discharge Orders/Prescriptions Prescriptions: New acetaminophen 500 mg Tablet 1,000 mg PO Q8 14 Days Qty: 84 0RF aspirin 81 mg Tablet,Chewable 81 mg PO BID 28 Days Qty: 56 0RF sennosides-docusate sodium [Stimulant Laxative Plus] 8.6-50 mg Tablet 2 tab PO BID 7 Days Qty: 28 0RF meloxicam 7.5 mg Tablet 7.5 mg PO BID 30 Days Qty: 60 0RF oxycodone 5 mg Tablet 5 - 10 mg PO Q4H PRN PRN (Reason: Pain Score 4-10) 7 Days Qty: 42 0RF Continued multivitamin [Multiple Vitamins] Tablet 1 tab PO DAILY amlodipine 5 mg tablet 5 mg PO DAILY Patient Comments: TAKE 1 TABLET BY MOUTH EVERY DAY pantoprazole 40 mg tablet,delayed release (DR/EC) 40 mg PO DAILY Patient Comments: TAKE 1 TABLET BY MOUTH EVERY DAY hydrochlorothiazide 25 mg tablet 25 mg PO DAILY Patient Comments: TAKE 1 TABLET BY MOUTH EVERY DAY atorvastatin 40 mg tablet 40 mg PO QHS Qty: 30 2RF meclizine 25 mg tablet 25 mg PO DAILY dorzolamide 2 % drops 1 drp RIGHT EYE BID Discontinued aspirin 81 mg Tablet 162 mg PO QHS Referrals / Follow Up: Wayne Cameron DO [Med Staff - Active Staff] - Yeimy Rodriguez, APPRENTICE CARPENTER-C [Primary Care Provider] - Disposition Disposition (needs filled in before D/C Order can be placed): Home, Self Care
[2023-12-01 08:04] VITALS: BP 143/62; PULSE 84; RESP 16; TEMP 36.8; O2SAT 93
[2023-12-01] MEDS: oxyCODONE 5 MG Tablet PO (08:14)
[2023-12-01] MEDS: hydroCHLOROthiazide 25 MG Tablet PO (08:16)
[2023-12-01] MEDS: amLODIPine 5 MG Tablet PO (08:16)
[2023-12-01] MEDS: Aspirin 81 MG TAB.CHEW PO (08:16)
[2023-12-01] MEDS: Pantoprazole Sodium 40 MG Tablet PO (08:17)
[2023-12-01] MEDS: Meclizine HCl 25 MG Tablet PO (08:17)
[2023-12-01] MEDS: Senna/Docusate Sodium 1 Tablet 2 TABLET PO (08:17)
--- NOTE | 2023-12-01 09:50 | CASEMGMT ---
TITI JOHNSON Assessment: Face to Face with pt for initial transition planning/care coordination assessment. TITI JOHNSON introduced self and role at [facility], pt voices understanding and consents to assessment. Pt is A&O x4 and answers all questions appropriately at this time. Pt sitting up in chair in no distress. Son in room, pt agreeable to assessment with family present. Care providers, pharmacy, and demographics verified/updated. Strata:1 Admitting Dx: L knee Arthroplasty PCP: Michael Specialists: Nisha Vargas [facility] Insurance: [facility] Prescription Benefit: yes LNOK: Son Living Arrangements: Pt lives alone, will be staying with son for a couple weeks. Son lives in a 1 story home with 1 step to enter. ADLs: I with ADLs, needs assistance with IADLs. Son assists with grocery shopping, cleaning, yard work. Transportation: Pt drives self showrt distances, son drives pt to appointments and errands. DME: Cane, FWW, Shower Bench, Grab bars, Raised Toilet Seat. HHC/SNF: Denies Hx of. Pt states no concerns with going home at time of dc. Pt states has OP therapy scheduled for 12/04/23 at 9AM. Pt states no further concerns/needs. CM to follow. Advised pt to ask CM if any further question/concerns/needs arise, voices understanding. Pt Goal: Home Plan: Home with family support and OP therapy. Felipa WALLS CM
[2023-12-01 10:54] LABS: Anion Gap 7 (5-15); BUN 13 mg/dL (7-18); BUN/Creat Ratio 15.6 RATIO (10-20); Calcium,Total 9.3 mg/dL (8.5-10.1); Chloride 107 mmol/L (98-107); Creatinine, Serum 0.83 mg/dL (0.55-1.02); EST Glomerular Filtration Rate 70 mL/min (>60); Est Glom Filt Rate - Afr Amer 84 mL/min (>60); Glucose 104 mg/dL (74-106); Potassium 3.4 mmol/L (3.5-5.1); Sodium Level 142 mmol/L (136-145)
--- NOTE | 2023-12-01 11:56 | CASEMGMT ---
Met with patient to complete NICKERSON form. NICKERSON form explained to patient who voiced understanding and signed form. Original form placed in pt?s chart and copy provided to patient. Rosemarie Valentin, Discharge Planning Asst
[2023-12-01 13:13] VITALS: BP 119/59; PULSE 82; RESP 16; TEMP 36.8; O2SAT 100
== END 2023-12-01 13:12 | disposition home or self-care (01) ==
LOC: SDC 12:14 → MS3 12:14
PROVIDERS: Anesthesiology; Admitting Provider Student in an Organized Health Care Education/Training Program; PCP Nurse Practitioner Family; Referring Provider Student in an Organized Health Care Education/Training Program; Visit Provider Student in an Organized Health Care Education/Training Program
PROC: 0SRD0JZ Replacement of Left Knee Joint with Synthetic Substitute, Open Approach (ICD-10-PCS; CPT 27447; principal; 2023-11-30 10:00)
DX: M17.12 Unilateral primary osteoarthritis, left knee (principal); M21.162 Varus deformity, not elsewhere classified, left knee; Z87.891 Personal history of nicotine dependence; Z79.82 Long term (current) use of aspirin; Z79.899 Other long term (current) drug therapy; K21.9 Gastro-esophageal reflux disease without esophagitis; E78.5 Hyperlipidemia, unspecified; Z86.73 Personal history of transient ischemic attack (TIA), and cerebral infarction without residual deficits; I10 Essential (primary) hypertension
CPT/HCPCS: 27447; 01402; S2900; 64447; 36415; 80048; 82962; 83735; 85027; 87081; 88305; 88311; 94668; 96361; 96365; 96366; 97110; 97162; 97166; 97530; 97535; 99221; 99252; C1776; J7120; G0378; G0463; J2405; J3475

== ENCOUNTER 2024-08-01 10:14 | Observation (INO) | payer MEDICARE, SELFPAY ==
[2024-08-01] VITALS (7 sets, daily range): BP systolic 83–148; BP diastolic 56–71; PULSE 74–84; RESP 14–20; TEMP 36.4–36.7; O2SAT 93–98; BMI 27.9; BMI 27.7
--- NOTE | 2024-08-01 10:47 | EKG12_ITS ---
Test Reason : Blood Pressure : */* mmHG Vent. Rate : 77 BPM Atrial Rate : 77 BPM P-R Int : 140 ms QRS Dur : 92 ms QT Int : 430 ms P-R-T Axes : 30 20 33 degrees QTcB Int : 486 ms Normal sinus rhythm Nonspecific ST abnormality Abnormal ECG Confirmed by RUFUS FELTON, XI ([id number]), general expeditor RISHABH SANCHEZ ([id number]) on 08/03/2024 11:46:13 AM Referred By: Confirmed By: XI HOOPER MD
--- NOTE | 2024-08-01 10:47 | EX.ED.DYSGE1 ---
HPI <DION Fernando - Last Filed: 08/01/24 14:13> History of Present Illness Chief Complaint: General Illness Narrative Narrative: Patient presenting today due to an episode of chest pain that occurred on Thursday. She reports that she was outside yard work and was walking in her lawn when she turned and had sudden midsternal chest pain radiating to the back. She reports that she then felt weak in her legs and was able to ambulate inside and became diaphoretic and nauseous. She then went to lay down in bed and eventually fell asleep and when she woke up about an hour later the pain had resolved. She told her son about this today, he prompted her to come in to be evaluated. She reports that since then she has been asymptomatic. She denies any significant cardiac history or tobacco use history. She denies any history of blood clots or recent surgery/travel/immobilization. She has a PMH of HLD. PFSH <DION Fernando - Last Filed: 08/01/24 14:13> [facility] Medical History Stroke/cerebrovascular accident Loss of hearing Wears glasses Wears dentures Anxiety Arthritis Restless legs Vertigo Gastric reflux Former smoker History of pain when walking History of edema History of echocardiogram Retinal artery branch occlusion of right eye History of peptic ulcer Hyperlipidemia Hypertension Home Medications ?Medication ?Instructions ?Recorded ?Last Taken ?Type amlodipine 5 mg tablet 5 mg PO DAILY blood pressure 05/11/21 08/01/24 History hydrochlorothiazide 25 mg tablet 25 mg PO DAILY diuretic 05/11/21 08/01/24 History pantoprazole 40 mg tablet,delayed 40 mg PO DAILY reflux 05/11/21 08/01/24 History release atorvastatin 40 mg tablet 40 mg PO QHS #30 tabs 05/13/21 07/31/24 Rx multivitamin (Multiple Vitamins 1 tab PO DAILY 07/29/21 08/01/24 History tablet) dorzolamide 2 % eye drops 1 drp RIGHT EYE BID 11/11/23 08/01/24 History meclizine 25 mg tablet 25 mg PO DAILY vertigo 11/11/23 08/01/24 History acetaminophen 500 mg tablet 1,000 mg (2 x 500 mg) PO Q8 14 12/01/23 07/26/24 Rx days #84 tabs aspirin 81 mg chewable tablet 162 mg PO QHS 08/01/24 07/31/24 History Allergy/AdvReac Type Severity Reaction Status Date / Time No Known Allergies Allergy Verified 08/01/24 10:15 Family History Other CVA (cerebral vascular accident) Heart disease Surgical History Hx of colonoscopy Hx of abdominal surgery Hx of right cataract extraction Hx of left cataract extraction Status post hysterectomy Social History Smoking Status: Former smoker Tobacco: How many years used: 30 alcohol intake: never substance use type: does not use what type of physical activity do you participate in: walking frequency: daily mara/zoroastrian: Bahai seatbelt use: always ROS <DION Fernando - Last Filed: 08/01/24 14:13> ROS ED Constitutional Constitutional ED: Denies chills or fever(s) Cardiovascular Cardiovascular: Reports chest pain; Denies palpitations Respiratory/Chest Respiratory/Chest: Denies dyspnea Gastrointestinal Gastrointestinal: Reports nausea; Denies abdominal pain or vomiting Genitourinary Genitourinary ED: Denies dysuria, hematuria or urinary urgency Musculoskeletal Musculoskeletal: Denies arthralgias or myalgias Integumentary Denies rash Neurologic Neurologic: Reports weakness EXAM <DION Fernando - Last Filed: 08/01/24 14:13> Physical Exam Const Vital Signs: 08/01/24 10:15 08/01/24 11:20 08/01/24 12:15 Temperature 97.8 F Temperature Source Oral Pulse Rate 78 78 Respiratory Rate 16 18 Respiratory Effort Normal Respiratory Pattern Normal Blood Pressure 148/71 H 83/58 L Blood Pressure Mean 96 66 Pulse Ox 94 98 Oxygen Delivery Method Room Air 08/01/24 14:00 Temperature Temperature Source Pulse Rate 74 Respiratory Rate 14 Respiratory Effort Respiratory Pattern Blood Pressure 131/68 H Blood Pressure Mean 89 Pulse Ox 97 Oxygen Delivery Method Room Air Positive well nourished, well developed and no apparent distress General Appearance ED: well developed HEENT Reports normocephalic and head/scalp atraumatic Mouth ED: Yes moist mucous membranes normal Eyes PERRL and EOMs intact bilaterally Neck full ROM and supple Chest Wall inspection of chest normal Resp normal respiratory effort and clear to auscultation bilaterally Cardio regular rate and regular rhythm GI soft to palpation, non-tender, non-distended and no masses Back/Spine normal ROM and normal to inspection Extremity normal to inspection and full ROM Neuro oriented x3, CN's II-XII intact bilaterally, moves all extremities, no focal motor deficits and no sensory deficits noted Sensorium / Orientation: awake and alert Psych mental status grossly normal and thought process normal Skin no rashes or lesions noted and no wounds <Dr. Jorge Gasca DO - Last Filed: 08/01/24 14:24> Physical Exam Const Vital Signs: 08/01/24 10:15 08/01/24 11:20 08/01/24 12:15 Temperature 97.8 F Temperature Source Oral Pulse Rate 78 78 Respiratory Rate 16 18 Respiratory Effort Normal Respiratory Pattern Normal Blood Pressure 148/71 H 83/58 L Blood Pressure Mean 96 66 Pulse Ox 94 98 Oxygen Delivery Method Room Air 08/01/24 14:00 Temperature Temperature Source Pulse Rate 74 Respiratory Rate 14 Respiratory Effort Respiratory Pattern Blood Pressure 131/68 H Blood Pressure Mean 89 Pulse Ox 97 Oxygen Delivery Method Room Air MDM <DION Fernando - Last Filed: 08/01/24 14:13> [facility] Narrative Medical decision making narrative: Patient presenting today due to an episode of chest pain that occurred on Thursday. She was outside walking around her lawn when she turned and had sudden onset chest pain. Her pain resolved after going inside and laying down. She has not had any episodes of chest pain since. She is currently asymptomatic. Her troponin is elevated at 786, the remainder of her labs are unremarkable. We spoke with Dr. Lopez, he recommended aspirin at this time, we will speak with the hospitalist regarding admission for further cardiac workup including echocardiogram. She has remained stable. Blood pressure slightly low, she did ambulate though with the nurse and did well, she is being given IV fluids. Patient admitted in stable condition. Lab Data Attestation: I reviewed the patient's lab results. Lab results narrative: CBC, BMP unremarkable, initial troponin 786, delta pending Labs: Laboratory Results - last 24 hr 08/01/24 11:01 WBC 7.3 RBC 4.77 Hgb 13.3 Hct 39.5 MCV 82.8 MCH 27.9 MCHC 33.7 RDW Std Deviation 43.4 RDW Coeff of Vamshi 14.4 Plt Count 211 MPV 11.5 Immature Gran % (Auto) 0.400 Neut % (Auto) 70.5 H Lymph % (Auto) 16.5 L [place] % (Auto) 10.5 H Eos % (Auto) 1.1 Baso % (Auto) 1.0 Absolute Neuts (auto) 5.1 Absolute Lymphs (auto) 1.20 Nucleated RBC % 0 Sodium 139 Potassium 3.4 Chloride 103 Carbon Dioxide 24.3 Anion Gap 12 BUN 17 Creatinine 0.93 Estim Creat Clear Calc 48.46 L Est GFR (MDRD) Non-Af 61 BUN/Creatinine Ratio 18.5 Glucose 99 Calcium 9.1 Troponin T High Sens 786 H* Radiography X-Ray: Read by ED Physician Diagnostic Testing: Clinical Impression(s) from Imaging Studies Chest X-Ray 08/01/24 11:25 IMPRESSION: 1. No convincing or visible acute cardiopulmonary findings 2. Additional description as above. Reading Location: [facility] EKG Initial EKG: Comments: 77 bpm, normal sinus rhythm, no ST elevation, interpreted by attending ED physician <Dr. Jorge Gasca, DO - Last Filed: 08/01/24 14:24> [facility] History & Record Review Discussion w/independent historian: Patient and Family Additional record(s) reviewed:: Prior ED visit and Prior labs Lab Data Labs: Laboratory Results - last 24 hr 08/01/24 11:01 WBC 7.3 RBC 4.77 Hgb 13.3 Hct 39.5 MCV 82.8 MCH 27.9 MCHC 33.7 RDW Std Deviation 43.4 RDW Coeff of Vamshi 14.4 Plt Count 211 MPV 11.5 Immature Gran % (Auto) 0.400 Neut % (Auto) 70.5 H Lymph % (Auto) 16.5 L [place] % (Auto) 10.5 H Eos % (Auto) 1.1 Baso % (Auto) 1.0 Absolute Neuts (auto) 5.1 Absolute Lymphs (auto) 1.20 Nucleated RBC % 0 Sodium 139 Potassium 3.4 Chloride 103 Carbon Dioxide 24.3 Anion Gap 12 BUN 17 Creatinine 0.93 Estim Creat Clear Calc 48.46 L Est GFR (MDRD) Non-Af 61 BUN/Creatinine Ratio 18.5 Glucose 99 Calcium 9.1 Troponin T High Sens 786 H* Radiography Diagnostic Testing: Clinical Impression(s) from Imaging Studies Chest X-Ray 08/01/24 11:25 IMPRESSION: 1. No convincing or visible acute cardiopulmonary findings 2. Additional description as above. Reading Location: [id number] Management Discussion w/another healthcare provider: Hospitalist (Dr Bazzi) and Pit Operator (Dr Lopez) Treatment and Re-Evaluation :: I have personally performed a face to face assessment of the patient and have reviewed the COLIN Note. I performed a substantive portion of the visit including all aspects of the following. My sheehan findings include: History is 84-year-old female who reports a sudden onset of weakness around 1 week ago while working out in her yard. She went outside and developed pain in her upper chest going into her back. States it lasted around an hour and resolved after laying down. States she is otherwise been feeling fine. She notes history of hypertension and hypercholesterolemia. Exam is afebrile vital signs are stable patient is alert no acute distress. Lung sounds are clear and equal heart regular without murmur Medical Decison Making EKG does not demonstrate any obvious ST elevation. There is a single Q wave in 3. Troponin is elevated at 796. I spoke with cardiology we talked about possibly discharging her home with follow-up. We will obtain a second troponin to trend it. And using shared decision making plan will be admission into hospital Discharge Plan Dx/Rx/DC Orders Clinical Impression: Non-ST elevation CT (NSTEMI), Hyperlipidemia, Hypertension Disposition Disposition: Acute Care Hospital [facility]
[2024-08-01 11:15] LABS: Absolute Neutrophil Count 5.1 X10^3/uL (2.0-7.7); Basophil# 0.07 X10^3/uL; Eosinophil# 0.08 X10^3/uL; Eosinophils% 1.1 % (0-5); Hematocrit 39.5 % (37-47); Hemoglobin 13.3 g/dL (12.0-15.0); Lymphocyte % 16.5 % (19-41); Mean Corp Hgb Conc 33.7 g/dL (32-36); Mean Corpuscular Hgb 27.9 pg (27.0-32.0); Mean Corpuscular Volume 82.8 fL (81-99); Mean Platelet Vol. 11.5 fl (6.2-12.0); Monocyte# 0.76 X10^3/uL; Monocyte% 10.5 % (0-10); NRBC Flagged by Analyzer 0 % (0-5); Neutrophil # 5.12 X10^3/uL (2.7-7.7); Neutrophil % 70.5 % (47-70); Platelet Count 211 K/mm3 (150-450); RBC Distribution Width CV 14.4 % (11.6-14.6); RBC Distribution Width SD 43.4 fl (35.1-43.9); Red Blood Count 4.77 M/mm3 (4.2-5.4); White Blood Count 7.3 K/mm3 (4.4-11.0)
--- NOTE | 2024-08-01 11:25 | RAD_ITS ---
PROCEDURE: CHEST PA AND LATERAL (RADCXR), 08/01/2024 REASON FOR EXAM: CHEST PAIN TECHNIQUE: PA and lateral views of the chest were obtained. COMPARISON: None FINDINGS: Heart: Unremarkable. Mediastinum: Atherosclerosis. Suspect mild prominence of the pulmonary arteries as can be seen in pulmonary arterial hypertension. Lungs/pleura: No focal consolidation, allowing for chest wall attenuation. No pleural effusion or visible pneumothorax. Suspect an azygous lobe and fissure, normal variant. Bones: Demineralization. Multilevel spondylosis. Trace thoracic scoliosis may be positional. Lines and support devices: None. Other: None. RAD/Chest PA and Lateral IMPRESSION: 1. No convincing or visible acute cardiopulmonary findings 2. Additional description as above. Reading Location: [id number]
[2024-08-01 11:49] LABS: Anion Gap 12 (5-15); BUN 17 mg/dL (4-19); BUN/Creat Ratio 18.5 RATIO (10-20); Calcium,Total 9.1 mg/dL (7.6-11.0); Carbon Dioxide 24.3 mmol/L (21.0-32.0); Chloride 103 mmol/L (98-108); Creatinine, Serum 0.93 mg/dL (0.70-1.20); EST Glomerular Filtration Rate 61 (>60); Estimated Creatinine Clearance 48.46 ml/min (50-250); Glucose 99 mg/dL (70-99); Potassium 3.4 mmol/L (3.3-5.1); Sodium Level 139 mmol/L (133-145)
[2024-08-01 11:51] LABS: Troponin T High Sensitivity 786 ng/L (<=14)
[2024-08-01] MEDS: Aspirin 325 MG Tablet PO (12:58)
[2024-08-01 14:23] LABS: Troponin T High Sens 2 HR 701 ng/L (<=14)
--- NOTE | 2024-08-01 14:57 | PCM.HP.STD ---
[facility] - General General Date of Admission: 08/01/24 HPI Narrative BRIGHT RAO, is a 84 F who presents to the hospital a week after having significant episode of chest pain. On Thursday she was doing yard work and had significant substernal chest pain with radiation to her back. She says it felt like an elephant was sitting on her chest and she became significantly diaphoretic with some lightheadedness, dizziness. She laid down and her chest pain resolved. She presents today because she told her son and her doctor about the chest pain and they both demanded that she come to the ER. In the ER her EKG was nonischemic but she did have a troponin elevation to 786 with a second troponin 2 hours later at 701. She denies any lightheadedness or dizziness now and no chest pain or back pain. Of note she does have significant differences in blood pressures in her left arm compared to her right arm, her left arm is about 70 points higher which seems to be new for her. Discussed with the ED physician plan will be for a CTA of the chest while in the ER. [facility] Medical History (Updated 08/01/24 @ 15:[address] Wayne Bazzi MD) Myocardial infarct Stroke/cerebrovascular accident Loss of hearing Wears glasses Wears dentures Anxiety Arthritis Restless legs Vertigo Gastric reflux Former smoker History of pain when walking History of edema History of echocardiogram Retinal artery branch occlusion of right eye History of peptic ulcer Hyperlipidemia Hypertension Home Medications ?Medication ?Instructions ?Recorded ?Last Taken ?Type amlodipine 5 mg tablet 5 mg PO DAILY blood pressure 05/11/21 08/01/24 History hydrochlorothiazide 25 mg tablet 25 mg PO DAILY diuretic 05/11/21 08/01/24 History pantoprazole 40 mg tablet,delayed 40 mg PO DAILY reflux 05/11/21 08/01/24 History release atorvastatin 40 mg tablet 40 mg PO QHS #30 tabs 05/13/21 07/31/24 Rx multivitamin (Multiple Vitamins 1 tab PO DAILY 07/29/21 08/01/24 History tablet) dorzolamide 2 % eye drops 1 drp RIGHT EYE BID 11/11/23 08/01/24 History meclizine 25 mg tablet 25 mg PO DAILY vertigo 11/11/23 08/01/24 History acetaminophen 500 mg tablet 1,000 mg (2 x 500 mg) PO Q8 14 12/01/23 07/26/24 Rx days #84 tabs aspirin 81 mg chewable tablet 162 mg PO QHS 08/01/24 07/31/24 History Allergy/AdvReac Type Severity Reaction Status Date / Time No Known Allergies Allergy Verified 08/01/24 10:15 Family History Other CVA (cerebral vascular accident) Heart disease Surgical History Hx of colonoscopy Hx of abdominal surgery Hx of right cataract extraction Hx of left cataract extraction Status post hysterectomy Social History Smoking Status: Former smoker Tobacco: How many years used: 30 alcohol intake: never substance use type: does not use what type of physical activity do you participate in: walking frequency: daily mara/mosque: Buddhism seatbelt use: always ROS Constitutional Constitutional: Denies chills, fatigue, fever(s) or malaise Eyes Eyes: Denies blurry vision ENT HEENT: Denies headache(s) or nasal discharge Cardiovascular Cardiovascular: Denies chest pain, dyspnea on exertion or syncope Respiratory/Chest Respiratory/Chest: Denies cough, shortness of breath at rest or shortness of breath with exertion Gastrointestinal Gastrointestinal: Denies constipation, diarrhea, nausea or vomiting Genitourinary Genitourinary: Denies dysuria Neurologic Neurologic: Denies focal weakness, numbness or tremor(s) Psychiatric Psychiatric: Denies anxiety or depression Vital Signs Vital Signs Vital Signs: 08/01/24 10:15 08/01/24 11:20 08/01/24 12:15 Temperature 97.8 F Temperature Source Oral Pulse Rate 78 78 Respiratory Rate 16 18 Respiratory Effort Normal Respiratory Pattern Normal Blood Pressure 148/71 H 83/58 L Blood Pressure Mean 96 66 Pulse Ox 94 98 Oxygen Delivery Method Room Air 08/01/24 14:00 08/01/24 14:24 Temperature 98 F Temperature Source Pulse Rate 74 81 Respiratory Rate 14 20 H Respiratory Effort Respiratory Pattern Blood Pressure 131/68 H 143/68 H Blood Pressure Mean 89 93 Pulse Ox 97 95 Oxygen Delivery Method Room Air Weight Weight: 173 lb Body Mass Index (BMI) 27.9 Physical Exam Narrative General: Alert, Oriented x3, Cooperative, No apparent distress HEENT: Atraumatic, PERRLA, EOMI, Normocephalic Oral: Moist Mucosa Neck: Supple, No JVD Lungs: Diminished, Normal air movement, No rhonchi, No wheeze, No rales Cardiovascular: Regular rate, Regular Rhythm, Normal S1, Normal S2, No murmurs Abdomen: Soft, Non Tender, Non-Distended, No Hepato-splenomegaly Extremities: No edema, Capillary Refill Less than 3 Seconds Skin: No rashes, No breakdown Musculoskeletal: No Tenderness to Palpation of Joints or Extremities Neurological: No focal neurological deficits, Motor Exam 5/5 strength throughout, Sensory exam intact to light touch and pain Psych/Mental Status: Normal Affect, Appropriate Results Lab / Micro Data 08/01/24 11:01 08/01/24 11:01 Labs: Laboratory Results - last 24 hr 08/01/24 11:01: WBC 7.3, RBC 4.77, Hgb 13.3, Hct 39.5, MCV 82.8, MCH 27.9, MCHC 33.7, RDW Std Deviation 43.4, RDW Coeff of Vamshi 14.4, Plt Count 211, MPV 11.5, Immature Gran % (Auto) 0.400, Neut % (Auto) 70.5 H, Lymph % (Auto) 16.5 L, [place] % (Auto) 10.5 H, Eos % (Auto) 1.1, Baso % (Auto) 1.0, Absolute Neuts (auto) 5.1, Absolute Lymphs (auto) 1.20, Nucleated RBC % 0, Sodium 139, Potassium 3.4, Chloride 103, Carbon Dioxide 24.3, Anion Gap 12, BUN 17, Creatinine 0.93, Estim Creat Clear Calc 48.46 L, Est GFR (MDRD) Non-Af 61, BUN/Creatinine Ratio 18.5, Glucose 99, Calcium 9.1, Troponin T High Sens 786 H* 08/01/24 13:02: Troponin T Hi Sens 2 Hr 701 H* Imaging Radiology Impression Chest X-Ray 08/01/24 11:25 IMPRESSION: 1. No convincing or visible acute cardiopulmonary findings 2. Additional description as above. Reading Location: [facility] Assessment & Plan Assessment/Plan (1) Chest pain: (2) Elevated troponin: PLAN: Plan 1. Elevated troponin in the setting of chest pain about a week ago/essential HTN/HLD ? She likely had a non-STEMI a week ago and her troponins are trending down ? EKG does not demonstrate any primary electrical derangements currently ? Plan for an echo ? Continue with her home aspirin and Lipitor ? Given the disparity in blood pressures the ED physician will be ordering a CTA of the chest, I have a low likelihood for dissection ? Will consult cardiology for discharge planning and disposition pending echocardiogram ? Of note she has had retinal stroke previously, she is blind in her right eye 2. GERD ? Stable ? Continue with PPI DVT: Lovenox 75 minutes was spent on direct patient care, including documentation as well as chart review and collaboration with colleagues Charges/Coding Visit Charges Inpatient E&M: 94861 Init Hosp L3
--- NOTE | 2024-08-01 15:36 | ECHOD_ITS ---
Reason For Study Reason For Study: CHEST PAIN Procedure This was a 2D Doppler, Color Flow transthoracic echocardiogram. Exam performed portable in patient room. Left Ventricle Normal LV size. The estimated ejection fraction is 55 %. Diastolic function is indeterminate. Inferolateral hypokinesis. Right Ventricle Normal RV size. Normal systolic function. Atria The left atrium is mildly enlarged. Normal right atrium. No doppler evidence for ASD. Mitral Valve There is no mitral valve stenosis. Moderately severe (3+) mitral valve insufficiency. Tricuspid Valve There is no tricuspid stenosis. Mild tricuspid valve insufficiency. Pulmonary artery systolic pressure is 40 mmHg. Aortic Valve Trisinus/trileaflet aortic valve. There is no aortic stenosis. No aortic valve insufficiency. Pulmonic Valve There is no pulmonic valvular stenosis. No pulmonic valve insufficiency. Great Vessels Normal sized aortic root. Pericardium/Pleural No pericardial effusion. MMode/2D Measurements & Calculations LVIDd: 5.2 cm IVSd: 1.1 cm Ao root diam: 3.1 cm LVIDs: 3.6 cm LVPWd: 1.1 cm RVDd: 2.8 cm FS: 31.3 % LAV(MOD-bp): 60.3 ml LVAd ap4: 26.5 cm2 SV(MOD-sp4): 46.7 ml LAV(MOD-bp) Indexed: 32.1 ml/m2 LVLd ap4: 7.2 cm SI(MOD-sp4): 24.9 ml/m2 LAV(MOD-sp2): 58.1 ml EDV(MOD-sp4): 79.4 ml LAV(MOD-sp4): 62.3 ml EDV(sp4-el): 82.2 ml LVAs ap4: 14.8 cm2 LVLs ap4: 5.8 cm ESV(MOD-sp4): 32.6 ml ESV(sp4-el): 32.2 ml EF(MOD-sp4): 58.9 % EF(sp4-el): 60.8 % SV(sp4-el): 50.0 ml LA A4 area: 21.3 cm2 LA dimension(2D): 4.1 cm RA A4 area: 15.3 cm2 TAPSE: 2.3 cm Time Measurements MV dec time: 0.19 sec Doppler Measurements & Calculations MV E max jony: 90.6 cm/sec Lat Peak E' Jony: 9.9 cm/sec Med Peak E' Jony: 10.0 cm/sec MV A max jony: 118.0 cm/sec E/E' lat: 9.2 E/E' med: 9.1 MV E/A: 0.77 Ao V2 max: 137.3 cm/sec LV V1 max: 106.5 cm/sec PA V2 max: 102.2 cm/sec Ao max P.5 mmHg LV V1 max P.5 mmHg TR max jony: 293.4 cm/sec TR max P.4 mmHg ECHO/Echo Complete Interpretation Summary The estimated ejection fraction is 55 %. Diastolic function is indeterminate. Inferolateral hypokinesis The left atrium is mildly enlarged. Moderately severe (3+) mitral valve insufficiency. Ordering Physician: Wayne Bazzi Referring Physician: BECCA PAULINO Performed By: Nickie Kyle RDCS
[2024-08-01 19:17] LABS: Troponin T High Sensitivity 645 ng/L (<=14)
--- NOTE | 2024-08-01 19:26 | CT_ITS ---
PROCEDURE: CHEST WITH CONTRAST 08/01/2024 REASON FOR EXAM: BLOOD PRESSURE VARIATION IN UE LIMBS TECHNIQUE: Prone and supine chest CT with intravenous contrast, high resolution CT (HRCT) protocol. Coronal and Sagittal reconstruction series were provided. One or more dose reduction techniques were used (e.g., Automated exposure control, adjustment of the mA and/or kV according to patient size, use of iterative reconstruction technique). FINDINGS: Hardware: None Lymph nodes: Unremarkable. Heart and Vasculature: Cardiomegaly. No pericardial effusion. Atherosclerotic calcifications of the thoracic aorta. Pulmonary arteries are unremarkable. Lungs and Airways: Some dependent bibasilar atelectasis. No pneumonia. Pleura: Azygous lobe which is a normal variant. Upper Abdomen: Moderate-sized hiatal hernia. Bones: Mild dextroscoliosis of the thoracic spine with degenerative disc disease. CT/Chest WITH Contrast IMPRESSION: Coronary artery calcification (CAC) is was not evaluable No active disease. Reading Location: [id number]
[2024-08-01 21:31] LABS: Troponin T High Sens 2 HR 622 ng/L (<=14)
[2024-08-01] MEDS: Dorzolamide 2% 10ml Bottle 1 DRP RIGHT EYE (22:19)
[2024-08-01] MEDS: Aspirin 81 MG TAB.CHEW 162 MG PO (22:19)
[2024-08-01] MEDS: Atorvastatin Calcium 40 MG Tablet PO (22:19)
[2024-08-01 22:47] LABS: Troponin T High Sens 4 HR 615 ng/L (<=14)
[2024-08-02 04:00] VITALS: BP 127/67; PULSE 72; RESP 16; TEMP 36.6; O2SAT 96
[2024-08-02 04:18] LABS: Absolute Lymphocyte Count 1.47 X10^3/uL (0.83-4.51); Absolute Neutrophil Count 2.9 X10^3/uL (2.0-7.7); Basophil# 0.08 X10^3/uL; Basophil% 1.5 % (0-1); Eosinophil# 0.18 X10^3/uL; Eosinophils% 3.3 % (0-5); Hematocrit 36.1 % (37-47); Lymphocyte # 1.47 X10^3/ul (0.83-4.51); Lymphocyte % 27.1 % (19-41); Mean Corp Hgb Conc 33.2 g/dL (32-36); Mean Corpuscular Hgb 27.8 pg (27.0-32.0); Mean Corpuscular Volume 83.6 fL (81-99); Monocyte# 0.75 X10^3/uL; Monocyte% 13.8 % (0-10); NRBC Flagged by Analyzer 0 % (0-5); Neutrophil # 2.94 X10^3/uL (2.7-7.7); Neutrophil % 54.1 % (47-70); Platelet Count 202 K/mm3 (150-450); RBC Distribution Width CV 14.4 % (11.6-14.6); RBC Distribution Width SD 43.9 fl (35.1-43.9); Red Blood Count 4.32 M/mm3 (4.2-5.4); White Blood Count 5.4 K/mm3 (4.4-11.0)
[2024-08-02 04:54] LABS: Anion Gap 10 (5-15); BUN 15 mg/dL (4-19); BUN/Creat Ratio 16.4 RATIO (10-20); Calcium,Total 9.1 mg/dL (7.6-11.0); Carbon Dioxide 24.7 mmol/L (21.0-32.0); Chloride 107 mmol/L (98-108); Creatinine, Serum 0.93 mg/dL (0.70-1.20); EST Glomerular Filtration Rate 61 (>60); Estimated Creatinine Clearance 48.32 ml/min (50-250); Glucose 86 mg/dL (70-99); Potassium 3.5 mmol/L (3.3-5.1); Sodium Level 141 mmol/L (133-145)
[2024-08-02 08:23] VITALS: BP 133/65; PULSE 79; RESP 16; TEMP 36.6; O2SAT 96
[2024-08-02] MEDS: Pantoprazole Sodium 40 MG Tablet PO (08:27)
[2024-08-02] MEDS: hydroCHLOROthiazide 25 MG Tablet PO (08:27)
[2024-08-02] MEDS: Meclizine HCl 25 MG Tablet PO (08:27)
[2024-08-02] MEDS: amLODIPine 5 MG Tablet PO (08:27)
[2024-08-02] MEDS: Dorzolamide 2% 10ml Bottle 1 DRP RIGHT EYE (08:27)
[2024-08-02] MEDS: Enoxaparin 40 MG/0.4 ML Syringe SC (11:07)
--- NOTE | 2024-08-02 12:26 | PCM.CONS.C ---
Assessment & Plan Assessment/Plan (1) Elevated troponin: PLAN: Appears to be due to late presentation of non-ST elevation OR. Patient is currently asymptomatic. At this time aspirin 81 mg p.o. daily, Plavix 75 mg p.o. daily, metoprolol 25 mg p.o. twice daily, Lipitor 40 mg p.o. nightly would be recommended. Patient does not need invasive workup at this time. She could follow-up with cardiology service as an outpatient and at that time we could consider Lexiscan stress test if felt to be clinically indicated at that time. (2) Non-ST elevation OR (NSTEMI): (3) Mitral regurgitation: QUALIFIERS: Cardiac valve disease etiology: etiology unspecified Qualified Code(s): I34.0 - Nonrheumatic mitral (valve) insufficiency PLAN: Moderate to severe MR. Patient appears to have had inferolateral OR recently. A follow-up echo in about 3 months could be considered. PLAN: Plan Patient was asking about going home. It is reasonable to send the patient home from a cardiac standpoint with the overall plan as described above. HPI Consult Data Date of Consult: 08/02/24 HPI Narrative Reason for Consultation: Non-STEMI HPI Narrative: BRIGHT RAO, is a 84 F who presents a week after an episode of sudden onset of severe pressure-like discomfort in the upper back area. She also had fair amount of fatigue with that. She was working in the yard when this happened and it took her several minutes to come inside and rest. This was also associated with nausea. The next couple of days she was feeling very tired. After that she started feeling better and now is back to baseline. She denies any significant chest pain or shortness of breath or palpitations or dizziness. She came to the ER because her family insisted on that. In the ER her troponin was elevated and has been coming down. It appeared that patient had a late presentation of non-ST elevation OR and was admitted to the PCU. 2D echo was performed which reveals preserved EF with inferolateral hypokinesis. She does have moderate to severe MR. [facility] Medical History (Updated 08/02/24 @ 12:[address] Andres Lopez MD) Myocardial infarct Stroke/cerebrovascular accident Loss of hearing Wears glasses Wears dentures Anxiety Arthritis Restless legs Vertigo Gastric reflux Former smoker History of pain when walking History of edema History of echocardiogram Retinal artery branch occlusion of right eye History of peptic ulcer Hyperlipidemia Hypertension Home Medications ?Medication ?Instructions ?Recorded ?Last Taken ?Type amlodipine 5 mg tablet 5 mg PO DAILY blood pressure 05/11/21 08/01/24 History hydrochlorothiazide 25 mg tablet 25 mg PO DAILY diuretic 05/11/21 08/01/24 History pantoprazole 40 mg tablet,delayed 40 mg PO DAILY reflux 05/11/21 08/01/24 History release atorvastatin 40 mg tablet 40 mg PO QHS #30 tabs 05/13/21 07/31/24 Rx multivitamin (Multiple Vitamins 1 tab PO DAILY 07/29/21 08/01/24 History tablet) dorzolamide 2 % eye drops 1 drp RIGHT EYE BID 11/11/23 08/01/24 History meclizine 25 mg tablet 25 mg PO DAILY vertigo 11/11/23 08/01/24 History aspirin 81 mg chewable tablet 162 mg PO QHS 08/01/24 07/31/24 History acetaminophen 500 mg tablet 1,000 mg PO Q8 PRN pain 08/02/24 07/26/24 History Allergy/AdvReac Type Severity Reaction Status Date / Time No Known Allergies Allergy Verified 08/01/24 10:15 Family History Other CVA (cerebral vascular accident) Heart disease Surgical History Hx of colonoscopy Hx of abdominal surgery Hx of right cataract extraction Hx of left cataract extraction Status post hysterectomy Social History Smoking Status: Former smoker Tobacco: How many years used: 30 alcohol intake: never substance use type: does not use what type of physical activity do you participate in: walking frequency: daily mara/gnosticism: Oriental Orthodox seatbelt use: always Physical Exam Const alert and oriented x3 HEENT normocephalic Resp normal respiratory effort Risk Stratification Risk Stratification Applicable: No Charges/Coding Visit Charges Inpatient E&M: 74282 Init Hosp L2 Objective Data Vital Signs: Vital Signs Temp Pulse Resp BP Pulse Ox O2 Del Method 97.9 F 79 16 133/65 H 96 Room Air 08/02/24 08:23 08/02/24 08:23 08/02/24 08:23 08/02/24 08:23 08/02/24 08:23 08/02/24 08:23 Oxygen Delivery Method Room Air Weight: 172 lb Body Mass Index (BMI) 27.7 Intake & Output: Intake and Output for Last 24 Hours 07/31/24 08/01/24 08/02/24 23:59 23:59 23:59 Intake Total 480 / 480 Balance 480 / 480 Lab / Micro Data 08/02/24 03:56 08/02/24 03:56 Labs: Laboratory Results - last 24 hr 08/01/24 13:02: Troponin T Hi Sens 2 Hr 701 H* 08/01/24 18:35: Troponin T High Sens 645 H* D 08/01/24 20:15: Troponin T Hi Sens 2 Hr 622 H* 08/01/24 21:47: Troponin T Hi Sens 4Hr 615 H* 08/02/24 03:56: WBC 5.4, RBC 4.32, Hgb 12.0, Hct 36.1 L, MCV 83.6, MCH 27.8, MCHC 33.2, RDW Std Deviation 43.9, RDW Coeff of Vamshi 14.4, Plt Count 202, MPV 12.0, Immature Gran % (Auto) 0.200, Neut % (Auto) 54.1, Lymph % (Auto) 27.1, [place] % (Auto) 13.8 H, Eos % (Auto) 3.3, Baso % (Auto) 1.5 H, Absolute Neuts (auto) 2.9, Absolute Lymphs (auto) 1.47, Nucleated RBC % 0, Sodium 141, Potassium 3.5, Chloride 107, Carbon Dioxide 24.7, Anion Gap 10, BUN 15, Creatinine 0.93, Estim Creat Clear Calc 48.32 L, Est GFR (MDRD) Non-Af 61, BUN/Creatinine Ratio 16.4, Glucose 86, Calcium 9.1 Cardiology Labs/Tests 08/02/24 03:56: WBC 5.4, RBC 4.32, Hgb 12.0, Hct 36.1 L, MCV 83.6, MCH 27.8, MCHC 33.2, Plt Count 202, MPV 12.0, Immature Gran % (Auto) 0.200, Neut % (Auto) 54.1, Lymph % (Auto) 27.1, [place] % (Auto) 13.8 H, Eos % (Auto) 3.3, Baso % (Auto) 1.5 H, Absolute Neuts (auto) 2.9, Nucleated RBC % 0, Sodium 141, Potassium 3.5, Chloride 107, Carbon Dioxide 24.7, Anion Gap 10, BUN 15, Creatinine 0.93, Est GFR (MDRD) Non-Af 61, BUN/Creatinine Ratio 16.4, Glucose 86, Calcium 9.1 Rhythm: EKG: ECHO: Stress Test: Cardiac Cath: PCI: CT Surgery: Holter monitor: EPS: PPM: CXR: Chest CT Scan: Radiography Diagnostic Testing: Radiology Impression Chest X-Ray 08/01/24 11:25 IMPRESSION: 1. No convincing or visible acute cardiopulmonary findings 2. Additional description as above. Reading Location: [facility] Echocardiogram 08/01/24 15:36 Interpretation Summary The estimated ejection fraction is 55 %. Diastolic function is indeterminate. Inferolateral hypokinesis The left atrium is mildly enlarged. Moderately severe (3+) mitral valve insufficiency. Ordering Physician: Wayne Bazzi Referring Physician: BECCA PAULINO Performed By: Nickie Kyle RDCS Chest CT 08/01/24 19:26 IMPRESSION: Coronary artery calcification (CAC) is was not evaluable No active disease. Reading Location: [facility]
[2024-08-02 12:27] LABS: Magnesium 1.8 mg/dL (1.5-2.2)
[2024-08-02 15:23] VITALS: BP 118/57; PULSE 79; RESP 16; TEMP 37; O2SAT 98
[2024-08-02 15:31] VITALS: BP 118/57; PULSE 79
[2024-08-02] MEDS: Metoprolol Tartrate 25 MG Tablet PO (15:31)
[2024-08-02] MEDS: Clopidogrel Bisulfate 75 MG Tablet PO (15:31)
[2024-08-02] MEDS: 0.9% Saline Lock 10 ML Syringe IV (15:32)
--- NOTE | 2024-08-02 16:23 | DCINST_ITS ---
Discharge Instructions Diet Discharge Diet: Low fat / Low cholesterol DC O2, CPAP, BIPAP needs Home O2 Discharge instructions: No Dressing / Incision Discharge Activity: Return to Normal Activity Weight Bearing Status: Weight bearing as tolerated Dressing / Incision Call your doctor if you observe: Fever of 101 or Higher, Dizziness, Swelling in the ankles, Chest pain and Increased palpitations (irregular heartbeat) Follow Up Care Test Results: Test results from this visit will be discussed in further detail at your follow- up appointment, if applicable. Discharge Plan Admission Admit Date/Time: 08/01/24 14:54 Primary Reason for Your Visit: nonstemi Attending Provider: Janis Watson Primary Care Provider: Yeimy Rodriguez Consulting Providers: Andres Lopez; Wayne Bazzi Instructions Patient Instructions: Heart Attack Dc Discharge Orders/Prescriptions Prescriptions: New clopidogrel 75 mg Tablet 75 mg PO DAILY Qty: 30 2RF aspirin 81 mg Tablet,Chewable 81 mg PO QHS Qty: 30 2RF metoprolol tartrate 25 mg Tablet 25 mg PO BID Qty: 60 0RF Continued amlodipine 5 mg tablet 5 mg PO DAILY Patient Comments: TAKE 1 TABLET BY MOUTH EVERY DAY pantoprazole 40 mg tablet,delayed release (DR/EC) 40 mg PO DAILY Patient Comments: TAKE 1 TABLET BY MOUTH EVERY DAY atorvastatin 40 mg tablet 40 mg PO QHS Qty: 30 2RF meclizine 25 mg tablet 25 mg PO DAILY dorzolamide 2 % drops 1 drp RIGHT EYE BID acetaminophen 500 mg Tablet 1,000 mg PO Q8 PRN (Reason: pain) Discontinued hydrochlorothiazide 25 mg tablet 25 mg PO DAILY Patient Comments: TAKE 1 TABLET BY MOUTH EVERY DAY aspirin 81 mg Tablet,Chewable 162 mg PO QHS No Action multivitamin [Multiple Vitamins] Tablet 1 tab PO DAILY Referrals / Follow Up: Jah Joyce MD [Med Staff - Active Staff] - Within 2 Weeks Yeimy Rodriguez NP-C [Primary Care Provider] - Within 1 Week Disposition Disposition (needs filled in before D/C Order can be placed): Home, Self Care
--- NOTE | 2024-08-02 16:24 | PCM.DC.SUM ---
Providers Date of Admission: 08/01/24 Date of Discharge: 08/02/24 Primary Care Physician: KANIKA Mehta Consultations 08/01/24 15:36 Consult: Cardiology Routine Consulting Provider: Andres Lopez Reason for Consult: Recent NSTEMI EMERGENT Consult: No MD Notified: Yes Date Notified: 08/01/24 Time Notified: 15:54 Method of Notification: Text Reason For Visit: NSTEMI Diagnosis Discharge Diagnosis (1) Elevated troponin: Status: Acute Code(s): R79.89 - Other specified abnormal findings of blood chemistry (2) Non-ST elevation CO (NSTEMI): Status: Acute Code(s): I21.4 - Non-ST elevation (NSTEMI) myocardial infarction (3) Mitral regurgitation: Status: Acute Code(s): I34.0 - Nonrheumatic mitral (valve) insufficiency Qualifiers: Cardiac valve disease etiology: etiology unspecified Qualified Code(s): I34.0 - Nonrheumatic mitral (valve) insufficiency Medications at Discharge Home Medications amlodipine 5 mg tablet 5 mg PO DAILY blood pressure 05/11/21 pantoprazole 40 mg tablet,delayed release 40 mg PO DAILY reflux 05/11/21 atorvastatin 40 mg tablet 40 mg PO QHS #30 tabs 05/13/21 multivitamin (Multiple Vitamins tablet) 1 tab PO DAILY 07/29/21 dorzolamide 2 % eye drops 1 drp RIGHT EYE BID 11/11/23 meclizine 25 mg tablet 25 mg PO DAILY vertigo 11/11/23 acetaminophen 500 mg tablet 1,000 mg PO Q8 PRN pain 08/02/24 aspirin 81 mg chewable tablet 81 mg PO QHS #30 tabs 08/02/24 clopidogrel 75 mg tablet 75 mg PO DAILY #30 tabs 08/02/24 metoprolol tartrate 25 mg tablet 25 mg PO BID #60 tabs 08/02/24 Hospital Course Operations None Procedures 2-D Echocardiogram Summary of Care Provided Minutes Spent on Discharge: 45 Hospital Course: Patient is an 84-year-old female with past medical history as outlined was admitted through the ED on 08/01/2024 with a complaint of chest pain which occured about a week prior to admission. She was doing yard work about a week prior to admission and had significant substernal chest pain with radiation to her back. She says she felt like an elephant was sitting on her chest. She had associated diaphoresis with lightheadedness and dizziness. She laid down and his symptoms resolved. She did not seek any medical care then but said she subsequently told her son and her doctor about the chest pain and they told her to come into the ED. On admission in the ED troponins were elevated at 786 and trended down to 701. EKG showed no acute ST changes. Chest x-ray showed no acute cardiopulmonary findings. She was admitted to be managed for non-STEMI. Cardiology was consulted and per ED doctor discussion with cardiology, they recommended patient be placed on high intensity aspirin and statin. Did not recommend any anticoagulation as patient was not actively having chest pain and the chest pain had occurred about a week prior to admission. She was also placed on high intensity statin. She had 2D echo which showed EF of 55% with indeterminate diastolic function and inferior lateral hypokinesis as well as moderately severe 3+ mitral valve insufficiency. Cardiology recommended that patient could be discharged home on p.o. aspirin, Plavix and metoprolol as well as high intensity statin. She is follow-up with cardiology to determine if her stress test should be done in 12 repeat 2D echo. She was discharged home on 08/02/2024 and is to follow-up with her primary care doctor within 1 to 2 weeks and with cardiology within 1 to 2 weeks also. Of note her home dose of hydrochlorothiazide was discontinued and amlodipine 5 mg daily was continued. Patient seen and examined. Her son was by her bedside. She had no active complaints at this time. She denied any chest pain, lightheadedness or dizziness, palpitations, nausea vomiting or any other symptoms. Review of systems otherwise negative. Labs and vitals reviewed. Home medication reviewed and reconciled. Physical Exam Const alert, oriented x3 and no apparent distress General Appearance: cooperative and comfortable Orientation / Consciousness: awake Exam Limitations: no limitations HEENT normocephalic, head/scalp atraumatic, hearing grossly normal bilaterally and moist oral mucous membranes Mouth: oral and palatal mucosa normal Eyes PERRL, EOMs intact bilaterally and conjunctivae normal Neck no lymphadenopathy, supple and no JVD Resp normal respiratory effort, no retractions, no use of accessory muscles and clear to auscultation bilaterally Cardio regular rate, regular rhythm, S1 normal heart sound, S2 normal heart sound and no murmurs GI normal to inspection, nondistended, normoactive bowel sounds, soft to palpation, non-tender and non-distended Extremity normal to inspection, full ROM and no clubbing, cyanosis or edema Skin no rashes or lesions noted Neuro oriented x3, CN's II-XII intact bilaterally, moves all extremities and no focal motor deficits Sensorium / Orientation: awake and alert Motor Exam: strength 5/5 throughout Psych affect normal Weight / BMI Weight Weight: 172 lb Body Mass Index (BMI) 27.7 ABG / Lab / Microbiology Data 08/02/24 03:56 08/02/24 03:56 Laboratory: Laboratory Results - last 24 hr 08/01/24 18:35: Troponin T High Sens 645 H* D 08/01/24 20:15: Troponin T Hi Sens 2 Hr 622 H* 08/01/24 21:47: Troponin T Hi Sens 4Hr 615 H* 08/02/24 03:56: WBC 5.4, RBC 4.32, Hgb 12.0, Hct 36.1 L, MCV 83.6, MCH 27.8, MCHC 33.2, RDW Std Deviation 43.9, RDW Coeff of Vamshi 14.4, Plt Count 202, MPV 12.0, Immature Gran % (Auto) 0.200, Neut % (Auto) 54.1, Lymph % (Auto) 27.1, [place] % (Auto) 13.8 H, Eos % (Auto) 3.3, Baso % (Auto) 1.5 H, Absolute Neuts (auto) 2.9, Absolute Lymphs (auto) 1.47, Nucleated RBC % 0, Sodium 141, Potassium 3.5, Chloride 107, Carbon Dioxide 24.7, Anion Gap 10, BUN 15, Creatinine 0.93, Estim Creat Clear Calc 48.32 L, Est GFR (MDRD) Non-Af 61, BUN/Creatinine Ratio 16.4, Glucose 86, Calcium 9.1, Magnesium 1.8 Radiography Diagnostic Testing: Radiology Impression Echocardiogram 08/01/24 15:36 Interpretation Summary The estimated ejection fraction is 55 %. Diastolic function is indeterminate. Inferolateral hypokinesis The left atrium is mildly enlarged. Moderately severe (3+) mitral valve insufficiency. Ordering Physician: Wayne Bazzi Referring Physician: YEIMY RODRIGUEZ Performed By: Nickie Kyle RDCS Chest CT 08/01/24 19:26 IMPRESSION: Coronary artery calcification (CAC) is was not evaluable No active disease. Reading Location: [facility] D/ Instructions Discharge Diet: Low fat / Low cholesterol Discharge Activity: Return to Normal Activity Weight Bearing Status: Weight bearing as tolerated Call your doctor if you observe: Fever of 101 or Higher, Dizziness, Swelling in the ankles, Chest pain and Increased palpitations (irregular heartbeat) DC O2, CPAP, BIPAP Needs Home O2 Discharge instructions: No DC home with Oxygen: No Meaningful Use Info Meaningful Use Meaningful Use Diagnoses (Choose all that apply): AMI AMI/Post PCI/Angioplasty Aspirin given w/in 24hrs of arrival?: Yes ASA at discharge?: Yes Antiplatelet Therapy at Discharge:: Yes Statins at discharge?: Yes Morales/ARB at discharge?: No Reason Morales/ARB not ordered:: Not indicated Beta Ying at discharge?: Yes Done w/ Acute CO measure.: Yes Documented LVEF (%): 55 Ischemic Stroke Statin Dosing Therapy Reference: STATIN DOSE THERAPY REFERENCE: * Patients > 75 years receive moderate or high dose statin therapy. * Patients 75 years or YOUNGER should receive HIGH intensity statin dose unless contraindicated. You will be required to document reason for non-treatment if statin daily dose does not meet guidelines. HIGH DOSE STATIN THERAPY DAILY Atorvastatin > than or = to 40 mg Rosuvastatin > than or = to 20 mg Amlodipine + Atorvastatin > than or = to 2.5/40 mg Ezetimibe + Simvastatin 10/80 mg Simvastatin 80mg Discharge Plan Admission Admit Date/Time: 08/01/24 14:54 Primary Reason for Your Visit: nonstemi Attending Provider: Janis Watson Primary Care Provider: Yeimy Rodriguez Consulting Providers: Andres Lopez; Wayne Bazzi Instructions Patient Instructions: Heart Attack Dc Discharge Orders/Prescriptions Prescriptions: New clopidogrel 75 mg Tablet 75 mg PO DAILY Qty: 30 2RF aspirin 81 mg Tablet,Chewable 81 mg PO QHS Qty: 30 2RF metoprolol tartrate 25 mg Tablet 25 mg PO BID Qty: 60 0RF Continued amlodipine 5 mg tablet 5 mg PO DAILY Patient Comments: TAKE 1 TABLET BY MOUTH EVERY DAY pantoprazole 40 mg tablet,delayed release (DR/EC) 40 mg PO DAILY Patient Comments: TAKE 1 TABLET BY MOUTH EVERY DAY atorvastatin 40 mg tablet 40 mg PO QHS Qty: 30 2RF meclizine 25 mg tablet 25 mg PO DAILY dorzolamide 2 % drops 1 drp RIGHT EYE BID acetaminophen 500 mg Tablet 1,000 mg PO Q8 PRN (Reason: pain) Discontinued hydrochlorothiazide 25 mg tablet 25 mg PO DAILY Patient Comments: TAKE 1 TABLET BY MOUTH EVERY DAY aspirin 81 mg Tablet,Chewable 162 mg PO QHS No Action multivitamin [Multiple Vitamins] Tablet 1 tab PO DAILY Referrals / Follow Up: Jah Joyce MD [Med Staff - Active Staff] - Within 2 Weeks Yeimy Rodriguez NP-C [Primary Care Provider] - Within 1 Week Disposition Disposition (needs filled in before D/C Order can be placed): Home, Self Care Charges/Coding Visit Charges Inpatient E&M: 19706 Disch Hosp >30min
--- NOTE | 2024-08-02 16:27 | CHAPLAIN ---
Type of Pastoral Visit _x__ Initial Visit ___ Follow-up Visit ___ On-call Visit ___ General Patient Visit ___ Spiritual Assessment ___ Family Conference ___ Bereavement ___ Rapid Response ___ Code Blue ___ Other (describe below) Pastoral Care Referral From _x__ Patient ___ Family ___ Nurse ___ Physician ___ Business Area Manager ___ Needle Loom Weaver ___ Other (describe below) Sacrament/Intervention _x__ Active listening ___ Anointing ___ [employer] ___ Bereavement ___ Communion _x__ Jovanna exploration ___ _x__ Life review _x__ Prayer ___ Reconciliation ___ Sacrament of Sick ___ Supportive presence ___ Wedding ___ Other (describe below) Pastoral Comments patient presents with a positive outlook on life and states that she has no worries; pt says that I am saved and have no fears about ; pt is ; pt has good family support and is well connected to a jovanna community; pt admits that she will need to be more willing to have health assistance in the future; pt welcomes presence and prayer
--- NOTE | 2024-08-02 16:34 | CASEMGMT ---
Patient has order for discharge. RN CM in to discuss needs at discharge. Patient denies needs or help at discharge. Patient had no further questions or concerns.
--- NOTE | 2024-08-02 16:58 | PHA.DC.MR.R ---
Pharmacy [place] Med Reconciliation Pharmacy Service has performed discharge medication reconciliation for this patient. Attempted to skilled nursing facility counselor but patient was already discharged. Medications reviewed. The patient's discharge medication list was reviewed for discrepancies and discrepancies were resolved. Medications at Discharge Home Medications amlodipine 5 mg tablet 5 mg PO DAILY blood pressure 05/11/21 pantoprazole 40 mg tablet,delayed release 40 mg PO DAILY reflux 05/11/21 atorvastatin 40 mg tablet 40 mg PO QHS #30 tabs 05/13/21 multivitamin (Multiple Vitamins tablet) 1 tab PO DAILY 07/29/21 dorzolamide 2 % eye drops 1 drp RIGHT EYE BID 11/11/23 meclizine 25 mg tablet 25 mg PO DAILY vertigo 11/11/23 acetaminophen 500 mg tablet 1,000 mg PO Q8 PRN pain 08/02/24 aspirin 81 mg chewable tablet 81 mg PO QHS #30 tabs 08/02/24 clopidogrel 75 mg tablet 75 mg PO DAILY #30 tabs 08/02/24 metoprolol tartrate 25 mg tablet 25 mg PO BID #60 tabs 08/02/24
== END 2024-08-02 16:53 | disposition home or self-care (01) ==
LOC: ED 13:11 → PCU 15:03
PROVIDERS: Physician Assistant; Admitting Provider Family Medicine; Emergency Provider Emergency Medicine; PCP Nurse Practitioner Family; Visit Provider Student in an Organized Health Care Education/Training Program
DX: I21.4 Non-ST elevation (NSTEMI) myocardial infarction (principal); R07.9 Chest pain, unspecified; Z79.82 Long term (current) use of aspirin; K21.9 Gastro-esophageal reflux disease without esophagitis; I10 Essential (primary) hypertension; Z87.891 Personal history of nicotine dependence; R79.89 Other specified abnormal findings of blood chemistry; E78.5 Hyperlipidemia, unspecified; Z90.710 Acquired absence of both cervix and uterus; Z82.49 Family history of ischemic heart disease and other diseases of the circulatory system; I34.0 Nonrheumatic mitral (valve) insufficiency; R53.83 Other fatigue
CPT/HCPCS: 36415; 71046; 71260; 80048; 83735; 84484; 85025; 93005; 93306; 96372; 99221; 99285; Q9967; A4216; G0378

== ENCOUNTER → 2024-08-15 | Outpatient (CLI) | payer MEDICARE, SELFPAY ==
[2024-08-15 10:51] LABS: Anion Gap 11 (5-15); BUN 15 mg/dL (4-19); BUN/Creat Ratio 14.4 RATIO (10-20); Calcium,Total 9.4 mg/dL (7.6-11.0); Chloride 104 mmol/L (98-108); Creatinine, Serum 1.03 mg/dL (0.70-1.20); EST Glomerular Filtration Rate 54 (>60); Glucose 90 mg/dL (70-99); Potassium 3.9 mmol/L (3.3-5.1); Sodium Level 140 mmol/L (133-145)
== END | disposition home or self-care (01) ==
PROVIDERS: PCP Nurse Practitioner Family; Referring Provider Student in an Organized Health Care Education/Training Program; Visit Provider Student in an Organized Health Care Education/Training Program
DX: I10 Essential (primary) hypertension (principal)
CPT/HCPCS: 36415; 80048

== ENCOUNTER → 2024-08-31 | Outpatient (CLI) | payer MEDICARE, SELFPAY ==
[2024-08-31 13:13] LABS: ALB/GLOB Ratio 1.3 RATIO (0.9-2.4); AST(SGOT) 17 U/L (<=31); Alanine Aminotransfer ALT/SGPT 9 U/L (<=34); Albumin, Serum 4.1 g/dL (3.4-4.8); Alkaline Phosphatase 97 U/L (35-104); Anion Gap 12 (5-15); BUN 19 mg/dL (4-19); BUN/Creat Ratio 16.4 RATIO (10-20); Calcium,Total 9.6 mg/dL (7.6-11.0); Carbon Dioxide 23.1 mmol/L (21.0-32.0); Chloride 104 mmol/L (98-108); Cholesterol 125 mg/dL (<=200); Creatinine, Serum 1.18 mg/dL (0.70-1.20); EST Glomerular Filtration Rate 46 (>60); Globulin 3.2 g/dL (2.2-4.2); Glucose 94 mg/dL (70-99); High Density Lipoprotein 43 mg/dL; Low Density Lipoprotein Calc. 69 mg/dL; Protein, Total 7.3 g/dL (5.9-8.4); Sodium Level 140 mmol/L (133-145); Total Bilirubin 0.59 mg/dL (0.00-1.30); Triglycerides 66 mg/dL; Very Low Density Lipoprotein 13 mg/dL (5-40); cholesterol:hdl ratio screen 2.91
--- NOTE | 2024-08-31 15:57 | STRESSREP ---
Stress Test Report Date: 08/31/2024 Procedure: Pharmacologic stress nuclear imaging study Indications: Chest pain Consent: Per the patient Procedure: The patient underwent pharmacologic (Regadenoson 0.4mg ) evaluation with a peak heart rate of 87 beats per minute (63%predicted maximal heart rate) and a peak blood pressure of 132/80 mmHg. The baseline ECG demonstrated sinus rhythm with nonspecific ST changes. The peak pharmacologic ECG failed to show any diagnostic ischemic changes. There were no cardiac dysrhythmias pretest, during pharmacologic infusion, or recovery. There was no complaint of chest discomfort during pharmacologic infusion or recovery. The patient was injected with 12.3 millicuries of technetium 99m Cardiolite and subsequently rest SPECT Cardiolite nuclear imaging was obtained in the horizontal long, vertical long, and short axis views. The patient underwent pharmacologic (Regadenoson) evaluation. The patient was injected with 36.2 millicuries of technetium 99m Cardiolite and subsequently stress SPECT Cardiolite nuclear imaging was obtained in the horizontal long, vertical long, and short axis views. A gated Cardiolite study at peak stress was obtained. The examination was stopped secondary to completion of protocol. Rest and stress SPECT Cardiolite nuclear imaging status post realignment, normalization, and attenuation correction demonstrate no fixed or reversible perfusion defects. There is end systolic thickening and brightening. The gated Cardiolite study demonstrates myocardial thickening and inward wall motion. The reported LVEF is 67%. Impression: 1. Pharmacologic (Regadenoson) evaluation 2. Peak pharmacologic ECG with no diagnostic ischemic changes. 3. There were no cardiac dysrhythmias pretest, during pharmacologic infusion, or recovery. 5. Rest and stress SPECT Cardiolite nuclear imaging demonstrate relative uniform tracer uptake and myocardial perfusion appearing within normal limits. 6. The gated Cardiolite study reports an LVEF of 67%. This note was generated with [employer] software. It may contain incorrect words, spelling, and punctuation that were not noted in checking the note before signing.
== END | disposition home or self-care (01) ==
PROVIDERS: PCP Nurse Practitioner Family; Referring Provider Student in an Organized Health Care Education/Training Program; Visit Provider Student in an Organized Health Care Education/Training Program
DX: I25.2 Old myocardial infarction (principal); R60.0 Localized edema; E78.49 Other hyperlipidemia
CPT/HCPCS: 36415; 78452; 80053; 80061; 93017; A9500; A4216; J2785

== ENCOUNTER → 2024-12-12 | Outpatient (CLI) | payer MEDICARE, SELFPAY ==
[2024-12-12 10:05] LABS: Anion Gap 12 (5-15); BUN 17 mg/dL (4-19); BUN/Creat Ratio 18.4 RATIO (10-20); Calcium,Total 9.3 mg/dL (7.6-11.0); Carbon Dioxide 26.0 mmol/L (21.0-32.0); Chloride 102 mmol/L (98-108); Glucose 94 mg/dL (70-99); Potassium 3.7 mmol/L (3.3-5.1)
== END | disposition home or self-care (01) ==
LOC: LAB 08:50
PROVIDERS: PCP Nurse Practitioner Family; Referring Provider Student in an Organized Health Care Education/Training Program; Visit Provider Student in an Organized Health Care Education/Training Program
DX: I10 Essential (primary) hypertension (principal)
CPT/HCPCS: 36415; 80048

== ENCOUNTER → 2025-01-06 | Outpatient (CLI) | payer MEDICARE, SELFPAY ==
--- NOTE | 2025-01-06 13:52 | ECHOD_ITS ---
Reason For Study : B/L LE EDEMA Procedure This was a 2D Doppler, Color Flow transthoracic echocardiogram. Exam performed in department. Left Ventricle Normal left ventricle. Left ventricular systolic function is normal. The left ventricular ejection fraction is 60 %. Stage 1 diastolic dysfunction. No regional wall motion abnormalities noted. Right Ventricle Normal RV size. Normal systolic function. Atria The left atrium is mildly enlarged. Normal right atrium. Mitral Valve Bileaflet diffuse mitral valve thickening. Mild-Moderate (1-2+) eccentric mitral valve insufficiency. Tricuspid Valve Normal tricuspid valve. Mild (1+) tricuspid valve insufficiency. Aortic Valve Trisinus/trileaflet aortic valve. Pulmonic Valve Normal pulmonic valve. Great Vessels Mildly calcified aortic root. The pulmonary artery is normal size. Inferior vena cava collapse with respiration. Pericardium/Pleural No pericardial effusion. MMode/2D Measurements & Calculations LVIDd: 5.2 cm IVSd: 0.97 cm LVOT diam: 2.1 cm LVIDs: 3.5 cm LVPWd: 1.1 cm LVOT area: 3.3 cm2 FS: 33.1 % LAV(MOD-bp): 52.4 ml LVAd ap4: 21.8 cm2 SV(MOD-sp4): 30.0 ml LAV(MOD-bp) Indexed: 28.2 ml/m2 LVLd ap4: 7.2 cm SI(MOD-sp4): 16.2 ml/m2 LAV(MOD-sp2): 27.7 ml EDV(MOD-sp4): 56.1 ml LAV(MOD-sp4): 69.5 ml EDV(sp4-el): 55.6 ml LVAs ap4: 12.4 cm2 LVLs ap4: 5.6 cm ESV(MOD-sp4): 26.1 ml ESV(sp4-el): 23.4 ml EF(MOD-sp4): 53.5 % EF(sp4-el): 57.8 % SV(sp4-el): 32.1 ml LA A4 area: 23.1 cm2 LA dimension(2D): 4.3 cm RA A4 area: 15.2 cm2 Time Measurements MV dec time: 0.24 sec Doppler Measurements & Calculations MV E max jony: 75.8 cm/sec Lat Peak E' Jony: 7.6 cm/sec Med Peak E' Jony: 6.1 cm/sec MV A max jony: 115.9 cm/sec E/E' lat: 10.0 E/E' med: 12.4 MV E/A: 0.65 MV V2 max: 118.5 cm/sec Ao V2 max: 118.3 cm/sec MV max P.6 mmHg MV dec slope: 327.0 cm/sec2 Ao max P.6 mmHg MV V2 mean: 70.6 cm/sec Ao V2 mean: 85.8 cm/sec MV mean P.2 mmHg Ao mean P.3 mmHg MV V2 VTI: 33.7 cm Ao V2 VTI: 31.2 cm AV (velocity ratio): 0.76 MVA(VTI): 2.4 cm2 MASSIMO(I,D): 2.5 cm2 MASSIMO(V,D): 2.9 cm2 LV V1 max: 101.7 cm/sec SV(LVOT): 79.5 ml PA V2 max: 86.3 cm/sec LV V1 max P.1 mmHg PA V2 mean: 65.1 cm/sec LV V1 mean P.3 mmHg LV V1 mean: 70.9 cm/sec LV V1 VTI: 23.8 cm TR max jony: 260.3 cm/sec TR max P.1 mmHg ECHO/Echo Complete Interpretation Summary Normal left ventricle. Left ventricular systolic function is normal. The left ventricular ejection fraction is 60 %. Mild-Moderate (1-2+) eccentric mitral valve insufficiency. Stage 1 diastolic dysfunction. The left atrium is mildly enlarged. Bileaflet diffuse mitral valve thickening. Ordering Physician: Austyn Whipple Referring Physician: Austyn Whipple Performed By: Vidhi Espinal RCS
== END | disposition home or self-care (01) ==
PROVIDERS: PCP Nurse Practitioner Family; Referring Provider Student in an Organized Health Care Education/Training Program; Visit Provider Student in an Organized Health Care Education/Training Program
DX: R60.0 Localized edema (principal)
CPT/HCPCS: 93306